=== PATIENT | female | born 1960 | race Caucasian/White ===

== ENCOUNTER 2020-04-23 14:26 | Outpatient (CLI) | payer OTHER, SELFPAY ==
--- NOTE | ~2020-04-23 | CT_ITS ---
EXAMINATION: CT chest wo con DATE: 04/23/2020 15:55 INDICATION: Lung abscess TECHNIQUE: Computed tomography (CT) of the chest was performed without intravenous contrast. The dose -length product (DLP) was 131.75 mGy-cm. Automated exposure control and iterative reconstruction tech [employer] were employed. COMPARISON: 06/28/2019 FINDINGS: There is mild emphysema. The previously described cavitary mass of the right lower lobe is no longer evident. There is a 7 mm persistent nodular area of scarring at the former abscess site. Th e lungs are free of acute opacities. No pathologically enlarged thoracic lymph nodes are identified. The heart size is normal. There is moderate thoracic spondylosis. Healed left-sided rib fractures are noted. IMPRESSION: 1. Persistent area of scarring in the right lower lobe at the site of the prior cavitary mass. Reviewed, dictated and finalized at location A.
--- NOTE | ~2020-04-23 | DEXA_ITS ---
Bone Density Report Name: Margaret Hamilton Age: 59 Sex: Female Ethnicity: White Date of : 1960 Indication: postmenopausal; parental hip fracture; height loss; asthma or emphysema; Referring Provider: LESLEY MARTIN Study: Bone densitometry was performed. Exam Date: April 23, 2020 Accession number: [id number] Bone Density: Region BMD T-score Z-score Classification AP Spine (L1-L4) 1.483 4.0 5.3 Normal Femoral Neck (Left) 0.659 -1.7 -0.5 Osteopenia Total Hip (Left) 0.774 -1.4 -0.5 Osteopenia Total Hip Bilateral Avg 0.789 -1.3 -0.4 Osteopenia Femoral Neck (Right) 0.659 -1.7 -0.5 Osteopenia Total Hip (Right) 0.803 -1.1 -0.3 Osteopenia World Health Organization criteria for BMD impression classify patients as: Normal (T-score at or above -1.0), Osteopenia (T-score between -1.0 and -2.5), or Osteoporosis (T-score at or below -2.5). 10-year Fracture Risk(1): Major Osteoporotic Fracture 13% Hip Fracture 1.3% Reported Risk Factors: [place] (), Neck BMD=0.659, BMI=17.4, parental fracture, smoking (1) FRAX(R) Version 3.08. Fracture probability calculated for an untreated patient. Fracture probability may be lower if the patient has received treatment. Clinical Information Provided by Patient: Parent has had a hip fracture Smokes Has the following medical conditions: Asthma or Emphysema Patient maximum height was 61.5 Menopause Age: 51 No regular weight bearing exercise Drinks caffeinated beverages Onset of menses at age 13 Number of children 0 Impression: The patient has low bone mass, based on the Left Femoral Neck T-score. The patient has an estimated ten-year risk of hip fracture of 1.3% and an estimated ten-year risk of major fracture of 13%, based on the WHO FRAX algorithm. The patient has risk factors, including: parental hip fracture, smoking. Discussion: BONE DENSITY IS LOW AT ONE OR MORE SKELETAL SITES. This patient's lowest T-score is low at one or more skeletal sites. It meets the World Health Organization's (WHO) criteria for ?low bone mass? (T-score between -1.0 and -2.5). The patient's 10-year risk of fracture as calculated by FRAX is less than the threshold where pharmacological therapy is recommended by the National Osteoporosis Foundation (NOF). However, all treatment decisions require clinical judgment and consideration of individual patient factors, including patient preferences, comorbidities, previous drug use, risk factors not captured in the FRAX model (e.g., frailty, falls, vitamin D deficiency, increased bone turnover, interval significant decline in bone density) and possible under or overestimation of fracture risk by FRAX. The patient should follow a healthful lifestyle (good nutrition with adequate calcium and vitamin D, and appropriate weight-bearing exercise).
--- NOTE | ~2020-04-23 | XR_ITS ---
EXAMINATION: XR shoulder RT min 2V DATE: 04/23/2020 15:50 INDICATION: Soft tissue mass at the right shoulder TECHNIQUE: AP internally and externally rotated, AP oblique externally rotated and axillary views of the right shoulder were obtained. COMPARISON: None FINDINGS: Normal alignment. No fracture. Glenohumeral joint space is normal. Mild to moderate acromioclavicula r osteoarthritis with small inferiorly directed osteophytes. Small amount of heterotopic ossification along the right coracoclavicular segment. There is a 9.7 x 4.1 cm lenticular low density mass within the right deltoid muscle with thin peripheral soft tissue density rim most likely representing an in tramuscular lipoma. Visualized portion of the lungs are clear. Severe lower cervical facet osteoarthr itis. 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 Could consider CT or MRI for more definitive determination. Reviewed, dictated and finalized at location B. 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 Could consider CT or MRI for more definitive det ermination.
== END 2020-04-23 14:27 | disposition home or self-care (01) ==
PROVIDERS: Visit Provider Emergency Medicine
DX: J85.2 Abscess of lung without pneumonia (principal); M25.511 Pain in right shoulder; R22.31 Localized swelling, mass and lump, right upper limb
CPT/HCPCS: 71250; 73030; 77080

== ENCOUNTER 2020-05-05 15:42 | Outpatient (CLI) | payer OTHER, SELFPAY ==
--- NOTE | ~2020-05-05 | MR_ITS ---
EXAMINATION: MR shoulder RT wo con DATE: 05/05/2020 16:42 INDICATION: Abnormal soft tissue mass at the right shoulder. TECHNIQUE: Magnetic resonance imaging (MRI) of the right shoulder was performed without intravenous c ontrast. Sequences included axial PD-weighted FS FSE, coronal oblique PD-weighted FS FSE, coronal obl ique T2-weighted FS FSE, sagittal PD-weighted FS FSE, and sagittal T1-weighted SE. COMPARISON: None. FINDINGS: Coracoacromial arch: The acromion undersurface is minimally curved in morphology (type I-II). The coracoacromial ligament is normal. Moderate to severe acromioclavicular osteoarthritis. Low signal intensity region of likely vacuum phenomena within a subarticular cyst at the acromion. Rotator cuff: Moderate supraspinatus and mild infraspinatus tendinopathy without discrete tear. The teres minor ten don is normal. Mild subscapularis tendinopathy without discrete tear. Small enthesopathic ossicle at the lesser tuberosity insertion of the caudal aspect of the subscapularis tendon. Normal rotator cuff muscle bulk and signal. Biceps tendon, glenoid labrum and glenohumeral cartilage: Long head of the biceps tendon is normal. Small tear at the 12:00 position of the glenoid labrum. Par tial-thickness chondral fissuring along the adjacent cephalad rim of the glenoid. Glenohumeral cartil age is otherwise normal. Fluid: Physiologic amount of fluid in the glenohumeral joint and biceps tendon sheath. No loose osteochondra l bodies. Small amount of fluid in the subacromial/subdeltoid bursa consistent with mild bursitis. Bones: Normal marrow signal with no fracture or pathologic marrow replacing process. Homogeneous T1 hyperint ense 7.5 x 3.2 x 3.3 cm lenticular intramuscular mass within the central head of the deltoid. There i s a 5 x 3 x 5 mm T2 hyperintense region centrally within the mass. IMPRESSION: 1. 7.5 x 3.2 x 3.3 cm intramuscular fatty tumor with homogeneous T1 fat signal aside from a 5 x 5 x 3 mm T2 hyperintense region centrally within the mass. Differential would include lipoma variant most likely lipoma small region of central necrosis although differential would include less likely well-d ifferentiated liposarcoma. 2. Mild to moderate rotator cuff tendinopathy without discrete tear. 3. Small tear at the superior glenoid labrum and small region of adjacent partial thickness chondral fissuring along the cephalad rim of the glenoid. 4. Moderate to severe acromioclavicular osteoarthritis with mild underlying subacromial/subdeltoid bu rsitis. Reviewed, dictated and finalized at location B. IMPRESSION: 1. 7.5 x 3.2 x 3.3 cm intramuscular fatty tumor with homogeneous T1 fat signal aside from a 5 x 5 x 3 mm T2 hyperintense region centrally within the mass. Dif ferential would include lipoma variant most likely lipoma small region of centr al necrosis although differential would include less likely well-differentiated liposarcoma. 2. Mild to moderate rotator cuff tendinopathy without discrete tear. 3. Small tear at the superior glenoid labrum and small region of adjacent parti al thickness chondral fissuring along the cephalad rim of the glenoid. 4. Moderate to severe acromioclavicular osteoarthritis with mild underlying sub acromial/subdeltoid bursitis.
== END 2020-05-05 15:43 | disposition home or self-care (01) ==
PROVIDERS: Visit Provider Internal Medicine Pulmonary Disease
DX: R93.6 Abnormal findings on diagnostic imaging of limbs (principal); M79.89 Other specified soft tissue disorders; M19.011 Primary osteoarthritis, right shoulder
CPT/HCPCS: 73221

== ENCOUNTER 2020-12-30 14:49 | Emergency (ER) | payer OTHER, SELFPAY ==
[2020-12-30 14:57] VITALS: BP 139/73; PULSE 101; RESP 16; TEMP 37.3; O2SAT 95
--- NOTE | 2020-12-30 15:02 | ED.SKABFB ---
HPI - Skin/Abscess/Foreign Bdy General Chief complaint: Extremity Injury, Upper Stated complaint: SWOLLEN FINGER Source: patient and RN notes reviewed Limitations: no limitations History of Present Illness HPI narrative: The patient, who is a regular smoker/occasional drinker, presents with finger discomfort. Patient states she has a new onset, half week history of left index finger pad pain, redness and swelling. No fever, streaking, discharge, localization to the nail, injury. Symptoms are mild, worse with palpation, better with elevation. She would like a refill of her inhalers while here so mentions that she has stable , mild intermittent COPD/breathing troubles Related Data Home Medications Medication Instructions Recorded Confirmed alendronate mg PO 12/30/20 alprazolam 12/30/20 budesonide-formoterol [Symbicort] INHALATION 12/30/20 gabapentin 12/30/20 hydrochlorothiazide 12/30/20 sertraline mg 12/30/20 Allergies Allergy/AdvReac Type Severity Reaction Status Date / Time Penicillins Allergy Intermediate HIVES Verified 09/01/18 15:26 Review of Systems Review of Systems: Narrative: General/Constitutional: No weight loss,fever Eyes: N0: Redness,discharge Ears/Nose/Throat: No: Epistaxis,ear discharge Respiratory: Denies: Hemoptysis Gastrointestinal: No Vomiting, Bleeding-rectal Skin: REPORTS possible umps, eruption Neurologic: No Focal Weakness,Sz Hematologic: Denies: Petechiae/Purpura Psychiatric: No: Suicida ideationl All Other Systems: Reviewed and Negative PMFSH Comments At time of signature, agree with nursing past medical, surgical, social and family history. There is no relevant family history pertinent to the presenting complaint Exam Narrative: Exam Narrative: General Appearance: Well appearing, , Conjunctiva clear Ears: External ear normal, Auditory canal normal Nose: Normal nose, Nares clear Mouth/Throat: Normal appearing, Normal lips Neck: Supple Respiratory: Airway patent, No respiratory distress MS-finger: Normal strength (mostly intact, limited flexion/extension by pain), Tenderness (pad, with mild decreased ROM), Swelling (pad), Other (no anterior drawer, no collateral laxity,) Skin: Warm, Dry, Normal color Neurological: A&O x3, Speech clear, CN II-XII intact Psychiatric: Normal mood, Normal affect Course Vital Signs Vital signs: Vital Signs Temperature 99.1 F 12/30/20 14:57 Pulse Rate 101 H 12/30/20 14:57 Respiratory Rate 16 12/30/20 14:57 Blood Pressure 139/73 12/30/20 14:57 Pulse Oximetry 95 12/30/20 14:57 Temperature 99.1 F 12/30/20 14:57 Pulse Rate 101 H 12/30/20 14:57 Respiratory Rate 16 12/30/20 14:57 Blood Pressure 139/73 12/30/20 14:57 Pulse Oximetry 95 12/30/20 14:57 Procedures Abscess I/D hand: Date of Incision: 12/30/20 Side (if applicable): left Local Anesthetic: other anesthetic (EMLA) Technique: needle aspiration Irrigation: No Packing used?: none I&D Results: Blood and Nothing Discharge Plan Discharge Clinical Impression: Wil Patient Disposition: Home, Self-Care Condition: Stable Instructions: Paronychia (ED) Additional Instructions: Take clindamycin with food, pro biotic; stop if diarrhea occurs Return to hospital if worsens Do not take pain medicines with your other controlled drugs [alprazolam, sertraline] Prescriptions: New clindamycin HCl 300 mg capsule 300 mg PO TID Qty: 15 RF: 0 albuterol sulfate [Ventolin HFA] 90 mcg/actuation HFA aerosol inhaler 2 puff INHALATION QID PRN (Reason: shortness of breath or wheezing) Qty: 1 RF: 1 albuterol sulfate 2.5 mg /3 mL (0.083 %) solution for nebulization 2.5 mg inhalation Q6H Qty: 15 RF: 0 tramadol 50 mg tablet 50 mg PO Q6H PRN (Reason: pain) Qty: 14 RF: 0 No Action alendronate 70 mg tablet PO RF: 0 sertraline 100 mg tablet RF: 0 alpra
[2020-12-30] MEDS: LIDOCAINE/PRILOCAINE CREAM 2.5-2.5% TUBE 1 EACH TOPICAL (15:09)
== END 2020-12-30 15:56 | disposition home or self-care (01) ==
PROVIDERS: Emergency Provider Emergency Medicine; PCP Internal Medicine Pulmonary Disease
DX: M79.89 Other specified soft tissue disorders (principal); L03.012 Cellulitis of left finger; G62.9 Polyneuropathy, unspecified
CPT/HCPCS: 10160; 99213; G0463

== ENCOUNTER 2021-05-14 16:06 | Outpatient (CLI) | payer OTHER, SELFPAY ==
--- NOTE | ~2021-05-14 | CT_ITS ---
EXAMINATION: CT diagnostic chest wo con DATE: 05/14/2021 16:27 INDICATION: Solitary pulmonary nodule TECHNIQUE: Computed tomography (CT) of the chest was performed without intravenous contrast. The dose -length product (DLP) was 59.29 mGy-cm. Automated exposure control and iterative reconstruction techn ique were employed. COMPARISON: 04/23/2020 FINDINGS: There is mild emphysema. A persistent 7 mm area of nodular scarring is present in the right lower lobe at the site of prior abscess. There are patchy nodular opacities of the right lower lobe measuring up to 1.5 x 1.4 cm. Nodular airspace opacity is also present in the right middle lobe. Subt le groundglass opacity is noted in the right upper lobe. There is no pleural effusion or pneumothorax . There is mild mediastinal lymphadenopathy. The heart size is normal. There is moderate thoracic spo ndylosis. Severe lower cervical spondylosis is noted. IMPRESSION: 1. Nodular and airspace opacities of the right lung, likely infectious/inflammatory. Follow-up CT in three months is recommended. Reviewed, dictated and finalized at location B. RO SERVER IMPRESSION: 1. Nodular and airspace opacities of the right lung, likely infectious/inflamma tory. Follow-up CT in three months is recommended.
== END 2021-05-14 16:07 | disposition home or self-care (01) ==
LOC: ANHIMG 16:09
PROVIDERS: PCP Internal Medicine Pulmonary Disease; Visit Provider Internal Medicine Pulmonary Disease
DX: R91.1 Solitary pulmonary nodule (principal); M47.813 Spondylosis without myelopathy or radiculopathy, cervicothoracic region
CPT/HCPCS: 71250

== ENCOUNTER 2022-04-12 14:54 | Inpatient (IN) | payer OTHER, SELFPAY ==
[2022-04-12] VITALS (19 sets, daily range): BP systolic 103–166; BP diastolic 65–125; PULSE 95–120; RESP 18–33; TEMP 36.2–37.8; O2SAT 93–100; BMI 17.8
--- NOTE | ~2022-04-12 | XR_ITS ---
EXAMINATION: XR chest 1V portable DATE: 04/15/2022 08:07 INDICATION: Pneumonia. TECHNIQUE: A single frontal view of the chest was obtained. COMPARISON: Chest single view 04/12/2022, chest CT 05/14/2021 FINDINGS: The lungs are hyperexpanded. There are mild airspace opacities in right lower lung zone and left midlung zone. No pleural effusion or pneumothorax. The heart size is normal. There are old heal ed left rib fractures. IMPRESSION: 1. Mild airspace opacities in right lower lung zone and left midlung zone with worsening on the left, consistent with pneumonia. Reviewed, dictated and finalized at location D.
--- NOTE | ~2022-04-12 | XR_ITS ---
XR chest 1V portable 04/12/2022 16:12 Indication: Shortness of breath with fevers. History of COPD. Low oxygen saturation. Procedure: AP portable chest Comparison: 05/13/2019 Findings: Heart size is normal. The lungs are hyperinflated which is consistent with, but not diagnos tic of chronic obstructive pulmonary disease. Bibasilar airspace disease. No significant effusion or pneumothorax. No acute osseous abnormality. Impression: 1: Bibasilar airspace disease may represent pneumonia or edema. Reviewed, dictated and finalized at location A. Impression: 1: Bibasilar airspace disease may represent pneumonia or edema.
--- NOTE | 2022-04-12 14:58 | ECG_ITS ---
Measurements Intervals [place] Rate: 115 P: 88 WY: 185 QRS: 73 QRSD: 77 T: 77 QT: 312 QTc: 432 Interpretive Statements SINUS TACHYCARDIA POSSIBLE RIGHT ATRIAL ENLARGEMENT [0.25mV P WAVE] POSSIBLE LEFT ATRIAL ENLARGEMENT [-0.1mV P WAVE IN V1/V2] BORDERLINE ECG NO PREVIOUS ECG AVAILABLE FOR COMPARISON Electronically Signed On 04-12-2022 17:12:43 CDT by Dao Carr M.D.
[2022-04-12] MEDS: MAGNESIUM SULF 2 GM/WATER 50ML 2 GM/50 ML BAG IVPB (15:12)
--- NOTE | 2022-04-12 15:14 | PC.NURSE ---
Per verbal order of Dr. Delaney, Mag infusing over 15 minutes.
[2022-04-12] MEDS: IPRATROPIUM BR 0.02% INH SOLN 0.5 MG/2.5 ML VIAL INHALATION (15:23)
[2022-04-12] MEDS: ALBUTEROL SULFATE NEB 2.5 MG/3 ML INH 5 MG INHALATION ×4 (15:23→20:32)
[2022-04-12 15:24] LABS: Basophils Absolute Auto 0.1 K/mm3 (0.0-0.1); Basophils Percent Auto 0.3 % (0.2-1.2); Eosinophils Percent Auto 0.2 % (0-4.4); Hematocrit 38.2 % (37.0-47.0); Hemoglobin 12.2 g/dL (12.0-15.0); Immature Granulocyte Absolute 0.25 K/mm3 (0.00-0.031); Lymphocytes Percent Auto 5.6 % (18.3-44.2); Mean Corpuscular HGB Conc 31.9 g/dl (32-36); Mean Corpuscular Hemoglobin 32.6 pg (26-34); Mean Corpuscular Volume 102.1 fl (80-100); Mean Platelet Volume 8.7 fl (7.4-10.4); Monocytes Absolute Auto 1.8 K/mm3 (0.1-0.6); Monocytes Percent Auto 7.2 % (2.6-8.5); Neutrophils Absolute Auto 21.3 K/mm3 (1.3-6.7); Neutrophils Percent Auto 85.7 % (45.5-73.1); Platelet Count Result 504 k/mm3 (150-375); Red Blood Count 3.74 M/mm3 (4.2-5.4); Red Cell Distribution Width 13.1 % (11.5-14.5); White Blood Count 24.9 K/mm3 (4.5-10.0)
--- NOTE | 2022-04-12 15:34 | ED.SOB ---
HPI - SOB/Dyspnea General Chief Complaint: Shortness of Breath/Dyspnea Stated Complaint: RESP DISTRESS History of Present Illness HPI Narrative: This is a 61-year-old female with past medical history of COPD, with cough over the past week, brought in by EMS for shortness of breath. The patient reports she was seen by her primary care doctor for pneumonia and started on doxycycline but continued to have shortness of breath. Today her breathing significantly worsened and did not improve despite use of home nebulizers. She complains of chest tightness but denies pain, loss of consciousness, weakness or numbness. Related Data Home Medications Medication Instructions Recorded Confirmed alprazolam 0.25 mg tablet 0.25 mg PO BID 12/30/20 04/12/22 gabapentin 300 mg capsule 300 mg PO DAILY 12/30/20 04/12/22 hydrochlorothiazide 12.5 mg tablet 12.5 mg PO DAILY 12/30/20 04/12/22 sertraline 100 mg tablet 100 mg PO DAILY 12/30/20 04/12/22 Allergies Allergy/AdvReac Type Severity Reaction Status Date / Time Penicillins Allergy Intermediate HIVES Verified 09/01/18 15:26 Review of Systems Review of Systems: Review of systems limited due to patient acuity CONSTITUTIONAL: Subjective fevers and chills denies sweats. ENT: Denies rhinorrhea, congestion, sore throat, or otalgia. CARDIOVASCULAR: Denies chest pain, palpitations, or edema. RESPIRATORY: cough and dyspnea. GASTROINTESTINAL: Denies abdominal pain, nausea, vomiting, or diarrhea. GENITOURINARY: Denies dysuria or hematuria. SKIN: Denies rash or itching. MUSCULOSKELETAL: Denies back pain, joint pain, or myalgia. NEUROLOGIC: Denies headache, numbness, dizziness, or weakness. PSYCHIATRIC: Denies anxiety or depression. PMFSH Social History Social History Years smoked: 45 Smoking status: Light tobacco smoker Tobacco type: cigarettes Second hand tobacco smoke exposure: No Alcohol intake: current Drinks per week: 14 Substance use: never Spiritual care concerns: No Exam Narrative: GENERAL: Well-developed, well-nourished, thin, in moderate distress due to dyspnea HEAD: Normocephalic, atraumatic. EYES: PERRLA and EOMI. ENT: Nares clear, no rhinorrhea or epistaxis. Mucous membranes moist. Oropharynx without tonsillar hypertrophy exudate or other lesions. NECK: Supple. No adenopathy or masses. No carotid bruits or JVD CHEST: Tachypneic, decreased aeration on auscultation, full cycle wheeze, greatest in the expiratory phase. Supraclavicular retractions noted HEART: Tachycardic with regular rhythm. No murmur heard. Normal peripheral pulses. ABDOMEN: Soft, nontender, nondistended, normal active bowel sounds. EXTREMITIES: Normal range of motion. No edema. SKIN: Warm, dry, no rash. NEURO: No focal deficits. Alert and oriented x3. PSYCH: Normal mood and affect. Course Course Emergency Course: 16:09 - Chest x-ray concerning for pneumonia we will treat with Rocephin and azithromycin. 16:14 - Reassessed patient, she states her breathing has improved. Heart rate improved to 100s with nebulizing treatments ongoing. Lung sounds now demonstrate mild expiratory wheeze with improved aeration. 17:02 - Discussed patient with hospitalist, NITA Tyson who accepts admission. Review of documentation shows the patient has been recently prescribed steroids. I suspect this is contributing to the patient's elevated WBC. Vital Signs Vital signs: Vital Signs Pulse Rate 119 H 04/12/22 15:00 Pulse Oximetry 96 04/12/22 15:00 Oxygen Delivery Nasal Cannula 04/12/22 15:00 Oxygen Flow Rate 5 04/12/22 15:00 Temperature 97.2 F L 04/12/22 20:25 Pulse Rate 102 H 04/12/22 20:45 Respiratory Rate 22 H 04/12/22 20:45 Blood Pressure 121/74 04/12/22 20:25 Pulse Oximetry 95 04/12/22 20:33 Oxygen Delivery Nasal Cannula 04/12/22 20:33 Oxygen Flow Rate 2 04/12/22 20:33 MDM - SOB/Dyspnea MDM Narrative Medical decision making narrative: Plan: Labs, imaging, nebs, antib
[2022-04-12 15:35] LABS: Alanine Aminotransferase 28 U/L (6-35); Albumin Level 3.7 g/dL (3.5-5.1); Alkaline Phosphatase 150 U/L (38-126); Anion Gap 10 mmol/L (8-16); Aspartate Amino Transferase 42 U/L (14-36); Bilirubin,Total 0.4 mg/dL (0.2-1.3); Blood Urea Nitrogen 15 mg/dL (7-17); Calcium 9.1 mg/dL (8.4-10.2); Carbon Dioxide 30 mmol/L (22-30); Chloride 97 mmol/L (98-107); Estimated CRCL calculation 67 ml/min; Estimated Glomerular Filt Rate > 60; Glucose 167 mg/dL (65-110); Potassium 3.3 mmol/L (3.4-5.0); Sodium 137 mmol/L (137-145)
[2022-04-12 15:37] LABS: Lactic Acid Reflex 0.9 mmol/L (0.7-2.0)
[2022-04-12 16:01] LABS: Influenza A QL RT-PCR Negative (Negative); Influenza B QL RT-PCR Negative (Negative); SARS-CoV-2 RNA PCR Negative; Troponin I < 0.012 ng/mL (0.000-0.034)
[2022-04-12] MEDS: DOXYCYCLINE HYCLATE 100 MG TABLET PO (16:39)
--- NOTE | 2022-04-12 17:15 | PM.IMHP ---
H&P: HPI History of Present Illness Date/Time: 04/12/22 17:15 Chief Complaint: Shortness of breath. Narrative: This is a pleasant 61-year-old female smoker with COPD who presented to the emergency department via EMS from home for evaluation of shortness of breath. She has not felt well for over a week with headache, low-grade fevers, sinus congestion, and cough productive of greenish-yellow sputum. Her quality intern prescribed doxycycline on 04/04/2022however she has taken this for several days without any meaningful benefit. Her breathing was much worse over the last 24 hours and this morning she could barely even catch her breath and was wheezing so much that she called emergency services. On EMS arrival her SpO2 was 82% on room air and she received a nebulizer and Solu-Medrol 125 milligrams in route to the hospital. Since arrival to the ER she has had a continuous nebulizer and she is feeling somewhat better. Workup in the ER was significant for a WBC of 24.9, potassium 3.3, troponin less than 0.012, and findings of pneumonia on chest x-ray. She was negative for influenza A and B and SARs CoV 2 by PCR. she denies sore throat, headache, chest pain, pleuritic pain, nausea, vomiting, and diarrhea. She also denies dysphagia and concerns for aspiration. No recent travel or known sick contacts. Review of Systems Review of Systems: Twelve systems were reviewed and are negative except for as per HPI. [facility] Past Medical History Medical History (Updated 04/12/22 @ 23:07 by Marbella Khan PA-C) Anxiety Chronic obstructive pulmonary disease Daily consumption of alcohol Hypertension Neuropathy Tobacco abuse Surgical History Surgical History (Updated 04/12/22 @ 23:05 by Marbella Khan PA-C) History of surgery on right wrist Family History Family History (Updated 04/12/22 @ 23:05 by Marbella Khan PA-C) Other Hypertension Social History Social History (Updated 04/12/22 @ 23:06 by Marbella Khan PA-C) Social History: Surrogate medical decision maker: Dorian (father) or Kerwin (brother) Alfonso. Code status: Full code. Smoking packs per day: 1 Smoking cigarettes per day: 20.0 Years smoked: 45 Smoking pack-years: 45.00 Smoking status: Current every day smoker Tobacco type: cigarettes Second hand tobacco smoke exposure: No Alcohol intake: current Drinks per week: 14 Substance use: never Additional living arrangements comments: The patient lives in [place]. 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 Spiritual care concerns: No Meds Home Medications and Allergies Home Medications Medication Instructions Recorded Confirmed Type albuterol sulfate 2.5 mg/3 mL 2.5 mg (3 mL) inhalation Q6H #15 mL 12/30/20 04/12/22 Rx (0.083 %) solution for nebulization albuterol sulfate 90 mcg/actuation 2 puff inhalation QID PRN 12/30/20 04/12/22 Rx aerosol inhaler (Ventolin HFA) shortness of breath or wheezing #1 g alprazolam 0.25 mg tablet 0.25 mg PO BID 12/30/20 04/12/22 History gabapentin 300 mg capsule 300 mg PO DAILY 12/30/20 04/12/22 History hydrochlorothiazide 12.5 mg tablet 12.5 mg PO DAILY 12/30/20 04/12/22 History sertraline 100 mg tablet 100 mg PO DAILY 12/30/20 04/12/22 History Allergies Allergy/AdvReac Type Severity Reaction Status Date / Time Penicillins Allergy Intermediate HIVES Verified 09/01/18 15:26 Vital Signs Vital Signs - 24 hr 04/12/22 15:00 04/12/22 15:00 04/12/22 15:22 Temperature Pulse Rate 119 H 108 H Respiratory Rate 27 H Blood Pressure Pulse Oximetry 96 Oxygen Delivery Nasal Cannula Oxygen Flow Rate 5 04/12/22 15:22 04/12/22 15:01 04/12/22 15:16 Temperature 100.1 F H Pulse Rate 114 H 120 H Respiratory Rate 23 H 23 H Blood Pressure 128/79 139/76 Pulse Oximetry 96 95 Oxygen Delivery Oxygen Flow Rate 04/12/22 16:20 Temperature Pulse Rate 111 H Respiratory Rate 25 H Blood
--- NOTE | 2022-04-12 18:08 | PC.NURSE ---
Patient care report called to RUPERTO Sam. All questions answered at this time.
--- NOTE | 2022-04-12 18:36 | PC.NURSE ---
This patient, Margaret Hamilton, was admitted to [facility] Surg Room 311-01. Patient/family oriented to hospital policies and general routines including ID bracelet, bed and alarms, visiting hours, pain management, procedures, bathroom and other care routines, personal items, smoking policy, room service/diet, and visiting hours. Information on how to activate the Rapid Response Team has been discussed. Patient/Family are encouraged to report perceived risks to care and to ask questions if they do not understand what they are told or what they should do.
[2022-04-13] VITALS (14 sets, daily range): BP systolic 100–125; BP diastolic 58–76; PULSE 87–108; RESP 17–25; TEMP 36.1–37; O2SAT 95–100; BMI 21.0
[2022-04-13] MEDS: POTASSIUM CHLORIDE 20 MEQ TABLET PO (00:55)
[2022-04-13] MEDS: LORazepam INJ (*CRX) 2 MG/ML VIAL 1 MG IV PUSH (01:32)
--- NOTE | 2022-04-13 02:55 | PCRCNOTE ---
Patient does not want to be woke up for breathing treatments over night. Told patient that if they decide they want a treatment to let RN know.
[2022-04-13 06:02] LABS: Hematocrit 34.7 % (37.0-47.0); Hemoglobin 11.1 g/dL (12.0-15.0); Mean Corpuscular Hemoglobin 32.7 pg (26-34); Mean Corpuscular Volume 102.4 fl (80-100); Mean Platelet Volume 8.9 fl (7.4-10.4); Platelet Count Result 515 k/mm3 (150-375); Red Blood Count 3.39 M/mm3 (4.2-5.4); White Blood Count 24.2 K/mm3 (4.5-10.0)
[2022-04-13 06:16] LABS: Alanine Aminotransferase 26 U/L (6-35); Albumin Level 3.4 g/dL (3.5-5.1); Alkaline Phosphatase 128 U/L (38-126); Anion Gap 10 mmol/L (8-16); Aspartate Amino Transferase 25 U/L (14-36); Bilirubin,Total 0.1 mg/dL (0.2-1.3); Blood Urea Nitrogen 19 mg/dL (7-17); Calcium 8.7 mg/dL (8.4-10.2); Carbon Dioxide 32 mmol/L (22-30); Chloride 97 mmol/L (98-107); Estimated CRCL calculation 56 ml/min; Estimated Glomerular Filt Rate > 60; Glucose 347 mg/dL (65-110); Magnesium 2.2 mg/dL (1.6-2.3); Potassium 3.9 mmol/L (3.4-5.0); Sodium 139 mmol/L (137-145)
[2022-04-13] MEDS: IPRATROPIUM BR 0.02% INH SOLN 0.5 MG/2.5 ML VIAL INHALATION ×2 (08:07→20:25)
[2022-04-13] MEDS: ALBUTEROL SULFATE NEB 2.5 MG/3 ML INH INHALATION ×3 (08:07→20:25)
[2022-04-13] MEDS: predniSONE 20 MG TABLET 40 MG PO (08:30)
[2022-04-13] MEDS: ALPRAZolam (*CRX) 0.25 MG TABLET PO ×2 (08:30→16:46)
[2022-04-13] MEDS: hydroCHLOROthiazide 12.5 MG CAPSULE PO (08:30)
[2022-04-13] MEDS: GABAPENTIN 300 MG CAPSULE PO (08:30)
[2022-04-13] MEDS: ENOXAPARIN 40 MG/0.4 ML SYRINGE SUB-Q (08:30)
[2022-04-13] MEDS: SERTRALINE HCL 50 MG TABLET 100 MG PO (08:30)
--- NOTE | 2022-04-13 11:00 | PM.IMPN ---
Progress Note: A&P Assessment and Plan (1) Community acquired pneumonia: Code(s): J18.9 - Pneumonia, unspecified organism Status: Acute Assessment and Plan: WBC is 24.2 Chest xray shows bibasilar disease representing pneumonia or edema Continue azithromycin and ceftriaxone. Sputum to be attempted for culture. Urinary antigens pneumococcal and legionella Get a BNP in the am to rule out fluid imbalance (2) COPD exacerbation: Code(s): J44.1 - Chronic obstructive pulmonary disease with (acute) exacerbation Status: Acute Assessment and Plan: Neb treatments Prednisone 40mg PO x 5 days Could be an acute exacerbation mixed with pneumonia Sputum culture ordered Chest xray as above Continue antibiotics (3) Tobacco abuse: Code(s): Z72.0 - Tobacco use Status: Acute Assessment and Plan: Smoking cessation is imperative and was discussed. She has cut back heavily over the last several weeks. Patch and gum PRN Education give x 8 minutes (4) Hypertension: Code(s): I10 - Essential (primary) hypertension Status: Acute Assessment and Plan: BP 106/69 Blood pressures were reviewed and they are reasonable. Continue antihypertensives Trend BP Adjust therapy as indicated (5) Daily consumption of alcohol: Code(s): Z78.9 - Other specified health status Status: Acute Assessment and Plan: She denies ever having signs or symptoms of alcohol withdrawal. Will initiate CIWA protocol, however. (6) Hypokalemia: Code(s): E87.6 - Hypokalemia Status: Acute Assessment and Plan: K 3.9 Potassium will be replaced Trend potassium Time Spent With Patient Time with patient: Greater than 35 minutes Subjective Date/time seen: 04/13/22 11:00 Interval history: 04/13/22 1100 Patient was okay. Patient has increased shortness of breath. She denied any coughing. She also denies any swelling and states that she is little short of breath. She denies any chest pain or sputum production. Patient does wear oxygen at home. Upon auscultation of the lungs it was noted the patient is very wheezy on expiration. She currently denies any constipation or diarrhea 04/12/22? 17:15 This is a pleasant 61-year-old female smoker with COPD who presented to the emergency department via EMS from home for evaluation of shortness of breath. She has not felt well for over a week with headache, low-grade fevers, sinus congestion, and cough productive of greenish-yellow sputum. Her emt p prescribed doxycycline on 04/04/2022however she has taken this for several days without any meaningful benefit. Her breathing was much worse over the last 24 hours and this morning she could barely even catch her breath and was wheezing so much that she called emergency services.? On EMS arrival her SpO2 was 82% on room air and she received a nebulizer and Solu-Medrol 125 milligrams in route to the hospital. Since arrival to the ER she has had a continuous nebulizer and she is feeling somewhat better. Workup in the ER was significant for? a WBC of 24.9, potassium 3.3, troponin less than 0.012, and findings of pneumonia on chest x-ray. She was negative for influenza A and B and SARs CoV 2 by PCR. she denies sore throat, headache, chest pain, pleuritic pain, nausea, vomiting, and diarrhea. She also denies dysphagia and concerns for aspiration. No recent travel or known sick contacts. Review of Systems Review of Systems: All systems reviewed & are unremarkable except as noted in HPI and below Exam Const: General: cooperative, no acute distress, well developed, alert, awake and well nourished Nutritional Appearance: well nourished Orientation/consciousness: patient oriented x3 Limitations: no limitations HENMT: Head: normal to inspection Ears: hearing grossly normal bilaterally Face/Nose/Sinus: Normal external nos
--- NOTE | 2022-04-13 20:31 | PCRCNOTE ---
pt is stating that on top of Q4 UPD at home, she would like to have a rescue inhaler to keep with her when she is discharged. pt states she has never been prescribed a rescue inhaler and would feel more secure being out of the home with an albuterol inhaler.
--- NOTE | 2022-04-13 20:34 | PCRCNOTE ---
pt is stating to not wake her up for 0000 or 0400 UPD. pt stated she will call if in need of UPD treatment.
[2022-04-14] VITALS (15 sets, daily range): BP systolic 118–134; BP diastolic 72–84; PULSE 74–105; RESP 16–20; TEMP 36.1–36.7; O2SAT 94–100
[2022-04-14 05:54] LABS: Basophils Percent Auto 0.1 % (0.2-1.2); Eosinophils Percent Auto 0.2 % (0-4.4); Hematocrit 34.1 % (37.0-47.0); Hemoglobin 10.5 g/dL (12.0-15.0); Immature Granulocyte Percent A 1.2 % (0-0.5); Lymphocytes Absolute Auto 1.69 K/mm3 (0.9-3.2); Mean Corpuscular HGB Conc 30.8 g/dl (32-36); Mean Corpuscular Hemoglobin 32.5 pg (26-34); Mean Corpuscular Volume 105.6 fl (80-100); Mean Platelet Volume 8.8 fl (7.4-10.4); Monocytes Absolute Auto 1.1 K/mm3 (0.1-0.6); Monocytes Percent Auto 6.7 % (2.6-8.5); Neutrophils Absolute Auto 13.8 K/mm3 (1.3-6.7); Neutrophils Percent Auto 81.8 % (45.5-73.1); Platelet Count Result 525 k/mm3 (150-375); Red Blood Count 3.23 M/mm3 (4.2-5.4); Red Cell Distribution Width 13.2 % (11.5-14.5); White Blood Count 16.9 K/mm3 (4.5-10.0)
[2022-04-14 06:26] LABS: Alanine Aminotransferase 33 U/L (6-35); Albumin Level 3.1 g/dL (3.5-5.1); Alkaline Phosphatase 121 U/L (38-126); Anion Gap 6 mmol/L (8-16); Aspartate Amino Transferase 45 U/L (14-36); Bilirubin,Total < 0.1 mg/dL (0.2-1.3); Blood Urea Nitrogen 20 mg/dL (7-17); Calcium 8.8 mg/dL (8.4-10.2); Carbon Dioxide 33 mmol/L (22-30); Chloride 97 mmol/L (98-107); Estimated CRCL calculation 64 ml/min; Estimated Glomerular Filt Rate > 60; Glucose 175 mg/dL (65-110); Potassium 3.5 mmol/L (3.4-5.0); Sodium 136 mmol/L (137-145)
[2022-04-14] MEDS: hydroCHLOROthiazide 12.5 MG CAPSULE PO (08:38)
[2022-04-14] MEDS: ENOXAPARIN 40 MG/0.4 ML SYRINGE SUB-Q (08:38)
[2022-04-14] MEDS: predniSONE 20 MG TABLET 40 MG PO (08:38)
[2022-04-14] MEDS: SERTRALINE HCL 50 MG TABLET 100 MG PO (08:38)
[2022-04-14] MEDS: GABAPENTIN 300 MG CAPSULE PO ×2 (08:38→22:15)
[2022-04-14] MEDS: NICOTINE (*PBKC) 21 MG PATCH 1 PATCH TRANSDERM (08:39)
[2022-04-14] MEDS: ALPRAZolam (*CRX) 0.25 MG TABLET PO ×2 (08:39→16:15)
[2022-04-14] MEDS: ALBUTEROL SULFATE NEB 2.5 MG/3 ML INH INHALATION ×3 (09:20→20:56)
[2022-04-14] MEDS: IPRATROPIUM BR 0.02% INH SOLN 0.5 MG/2.5 ML VIAL INHALATION ×3 (09:20→20:56)
--- NOTE | 2022-04-14 11:15 | PM.IMPN ---
Progress Note: A&P Assessment and Plan (1) Community acquired pneumonia: Code(s): J18.9 - Pneumonia, unspecified organism Status: Acute Assessment and Plan: WBC is 24.2, trending down currently 16.9 Chest xray shows bibasilar disease representing pneumonia or edema 04/13/22 Continue azithromycin and ceftriaxone. day 2 Sputum collected and pending Urinary antigens pneumococcal and legionella (2) COPD exacerbation: Code(s): J44.1 - Chronic obstructive pulmonary disease with (acute) exacerbation Status: Acute Assessment and Plan: Neb treatments Prednisone 40mg PO x 5 days Could be an acute exacerbation mixed with pneumonia Sputum culture pending Wheezing better today remains on supplemental oxygen Chest xray as above Continue antibiotics (3) Tobacco abuse: Code(s): Z72.0 - Tobacco use Status: Acute Assessment and Plan: Smoking cessation is imperative and was discussed. She has cut back heavily over the last several weeks. Patch and gum PRN (4) Hypertension: Code(s): I10 - Essential (primary) hypertension Status: Acute Assessment and Plan: BP 124/84 Blood pressures were reviewed and they are reasonable. Continue antihypertensives Trend BP Adjust therapy as indicated (5) Daily consumption of alcohol: Code(s): Z78.9 - Other specified health status Status: Acute Assessment and Plan: She denies ever having signs or symptoms of alcohol withdrawal. Will initiate CIWA protocol, however. (6) Hypokalemia: Code(s): E87.6 - Hypokalemia Status: Acute Assessment and Plan: K 3.5 Potassium will be replaced Trend potassium Time Spent With Patient Time with patient: Greater than 35 minutes Subjective Date/time seen: 04/14/22 1115 Interval history: 04/14/22 1115 Patient is sitting up in bed. Patient states that she is feeling better today however she still is feeling short of breath and is still on oxygen. She also states that she still weak. She is walking back and forth to the bathroom. She also has more cough today and states that her sputum is more yellow. She also stated that with her cough it is causing her have a little bit of chest discomfort. She denies any palpitations, wheezes, sweats, fevers, chills. 04/13/22 1100 Patient was okay. Patient has increased shortness of breath. She denied any coughing. She also denies any swelling and states that she is little short of breath. She denies any chest pain or sputum production. Patient does wear oxygen at home. Upon auscultation of the lungs it was noted the patient is very wheezy on expiration. She currently denies any constipation or diarrhea 04/12/22? 17:15 This is a pleasant 61-year-old female smoker with COPD who presented to the emergency department via EMS from home for evaluation of shortness of breath. She has not felt well for over a week with headache, low-grade fevers, sinus congestion, and cough productive of greenish-yellow sputum. Her children's court magistrate prescribed doxycycline on 04/04/2022however she has taken this for several days without any meaningful benefit. Her breathing was much worse over the last 24 hours and this morning she could barely even catch her breath and was wheezing so much that she called emergency services.? On EMS arrival her SpO2 was 82% on room air and she received a nebulizer and Solu-Medrol 125 milligrams in route to the hospital. Since arrival to the ER she has had a continuous nebulizer and she is feeling somewhat better. Workup in the ER was significant for? a WBC of 24.9, potassium 3.3, troponin less than 0.012, and findings of pneumonia on chest x-ray. She was negative for influenza A and B and SARs CoV 2 by PCR. she denies sore throat, headache, chest pain, pleuritic pain, nausea, vomiting, and diarrhea. She also denies dysphagia and concerns for aspi
--- NOTE | 2022-04-14 11:15 | P.PNIM_ITS ---
Progress Note: A&P Assessment and Plan (1) Community acquired pneumonia: Code(s): J18.9 - Pneumonia, unspecified organism Status: Acute Assessment and Plan: * WBC is 24.2, trending down currently 16.9 * Chest xray shows bibasilar disease representing pneumonia or edema 04/13/22 * Continue azithromycin and ceftriaxone. day 2 * Sputum collected and pending * Urinary antigens pneumococcal and legionella (2) COPD exacerbation: Code(s): J44.1 - Chronic obstructive pulmonary disease with (acute) exacerbation Status: Acute Assessment and Plan: * Neb treatments * Prednisone 40mg PO x 5 days * Could be an acute exacerbation mixed with pneumonia * Sputum culture pending * Wheezing better today * remains on supplemental oxygen * Chest xray as above * Continue antibiotics (3) Tobacco abuse: Code(s): Z72.0 - Tobacco use Status: Acute Assessment and Plan: * Smoking cessation is imperative and was discussed. * She has cut back heavily over the last several weeks. * Patch and gum PRN (4) Hypertension: Code(s): I10 - Essential (primary) hypertension Status: Acute Assessment and Plan: * BP 124/84 * Blood pressures were reviewed and they are reasonable. * Continue antihypertensives * Trend BP * Adjust therapy as indicated (5) Daily consumption of alcohol: Code(s): Z78.9 - Other specified health status Status: Acute Assessment and Plan: She denies ever having signs or symptoms of alcohol withdrawal. Will initiate CIWA protocol, however. (6) Hypokalemia: Code(s): E87.6 - Hypokalemia Status: Acute Assessment and Plan: * K 3.5 * Potassium will be replaced * Trend potassium Time Spent With Patient Time with patient: Greater than 35 minutes Subjective Date/time seen: 04/14/22 1115 Interval history: 04/14/22 1115 Patient is sitting up in bed. Patient states that she is feeling better today however she still is feeling short of breath and is still on oxygen. She also states that she still weak. She is walking back and forth to the bathroom. She also has more cough today and states that her sputum is more yellow. She also stated that with her cough it is causing her have a little bit of chest discomfort. She denies any palpitations, wheezes, sweats, fevers, chills. 04/13/22 1100 Patient was okay. Patient has increased shortness of breath. She denied any coughing. She also denies any swelling and states that she is little short of breath. She denies any chest pain or sputum production. Patient does wear oxygen at home. Upon auscultation of the lungs it was noted the patient is very wheezy on expiration. She currently denies any constipation or diarrhea 04/12/22? 17:15 This is a pleasant 61-year-old female smoker with COPD who presented to the emergency department via EMS from home for evaluation of shortness of breath. She has not felt well for over a week with headache, low-grade fevers, sinus congestion, and cough productive of greenish-yellow sputum. Her environmental tech prescribed doxycycline on 04/04/2022however she has taken this for several days without any meaningful benefit. Her breathing was much worse over the last 24 hours and this morning she could barely even catch her breath and was wheezing so much that she called emergency services.? On EMS arrival her SpO2 was 82% on room air and she received a nebulizer and Solu-Medrol 125 [place]
[2022-04-14] MEDS: ACETAMINOPHEN 325 MG TABLET 650 MG PO (22:14)
[2022-04-15] VITALS (15 sets, daily range): BP systolic 115–128; BP diastolic 57–66; PULSE 68–100; RESP 16–20; TEMP 36.2–36.5; O2SAT 78–100
--- NOTE | 2022-04-15 05:16 | PCRCNOTE ---
Patient refused her 0000 and 0400 breathing treatments. Patient stated she wanted to sleep.
[2022-04-15 06:04] LABS: Basophils Percent Auto 0.2 % (0.2-1.2); Eosinophils Percent Auto 0.4 % (0-4.4); Hematocrit 32.5 % (37.0-47.0); Hemoglobin 10.3 g/dL (12.0-15.0); Immature Granulocyte Absolute 0.12 K/mm3 (0.00-0.031); Immature Granulocyte Percent A 1.1 % (0-0.5); Lymphocytes Percent Auto 14.7 % (18.3-44.2); Mean Corpuscular HGB Conc 31.7 g/dl (32-36); Mean Corpuscular Hemoglobin 32.5 pg (26-34); Mean Corpuscular Volume 102.5 fl (80-100); Mean Platelet Volume 8.5 fl (7.4-10.4); Monocytes Absolute Auto 0.8 K/mm3 (0.1-0.6); Monocytes Percent Auto 7.6 % (2.6-8.5); Neutrophils Absolute Auto 8.3 K/mm3 (1.3-6.7); Platelet Count Result 547 k/mm3 (150-375); Red Blood Count 3.17 M/mm3 (4.2-5.4); White Blood Count 10.9 K/mm3 (4.5-10.0)
[2022-04-15 06:15] LABS: Alanine Aminotransferase 40 U/L (6-35); Alkaline Phosphatase 112 U/L (38-126); Anion Gap 9 mmol/L (8-16); Aspartate Amino Transferase 39 U/L (14-36); Bilirubin,Total < 0.1 mg/dL (0.2-1.3); Blood Urea Nitrogen 20 mg/dL (7-17); Calcium 8.8 mg/dL (8.4-10.2); Carbon Dioxide 37 mmol/L (22-30); Chloride 95 mmol/L (98-107); Estimated CRCL calculation 64 ml/min; Estimated Glomerular Filt Rate > 60; Glucose 217 mg/dL (65-110); Potassium 3.8 mmol/L (3.4-5.0); Sodium 141 mmol/L (137-145)
[2022-04-15 06:23] LABS: NT Pro B Type Natriuretic Pept 209 pg/mL (5-100)
[2022-04-15] MEDS: IPRATROPIUM BR 0.02% INH SOLN 0.5 MG/2.5 ML VIAL INHALATION ×4 (08:30→20:52)
[2022-04-15] MEDS: ALBUTEROL SULFATE NEB 2.5 MG/3 ML INH INHALATION ×4 (08:30→20:50)
[2022-04-15] MEDS: GABAPENTIN 300 MG CAPSULE PO ×2 (08:34→17:18)
[2022-04-15] MEDS: SERTRALINE HCL 50 MG TABLET 100 MG PO (08:34)
[2022-04-15] MEDS: hydroCHLOROthiazide 12.5 MG CAPSULE PO (08:34)
[2022-04-15] MEDS: ENOXAPARIN 40 MG/0.4 ML SYRINGE SUB-Q (08:35)
[2022-04-15] MEDS: ALPRAZolam (*CRX) 0.25 MG TABLET PO ×2 (08:35→17:21)
[2022-04-15] MEDS: predniSONE 20 MG TABLET 40 MG PO (08:35)
[2022-04-15] MEDS: NICOTINE (*PBKC) 4 MG GUM PO ×3 (08:45→17:18)
--- NOTE | 2022-04-15 10:00 | PM.IMPN ---
Progress Note: A&P Assessment and Plan (1) Community acquired pneumonia: Code(s): J18.9 - Pneumonia, unspecified organism Status: Acute Assessment and Plan: WBC is 24.2, trending down currently 10.9 Chest xray shows bibasilar disease representing pneumonia or edema 04/13/22 Repeat chest xray showed worsening PNA in the left lower lobe Continue azithromycin and ceftriaxone. day 3 Sputum collected and pending Urinary antigens pneumococcal and legionella pending (2) COPD exacerbation: Code(s): J44.1 - Chronic obstructive pulmonary disease with (acute) exacerbation Status: Acute Assessment and Plan: Neb treatments Prednisone 40mg PO x 5 days Could be an acute exacerbation mixed with pneumonia Sputum culture pending Wheezing better today remains on supplemental oxygen Chest xray as above Continue antibiotics (3) Tobacco abuse: Code(s): Z72.0 - Tobacco use Status: Acute Assessment and Plan: Smoking cessation is imperative and was discussed. She has cut back heavily over the last several weeks. Patch and gum PRN (4) Hypertension: Code(s): I10 - Essential (primary) hypertension Status: Acute Assessment and Plan: BP 123/66 Blood pressures were reviewed and they are reasonable. Continue antihypertensives Trend BP Adjust therapy as indicated (5) Daily consumption of alcohol: Code(s): Z78.9 - Other specified health status Status: Acute Assessment and Plan: She denies ever having signs or symptoms of alcohol withdrawal. Will initiate CIWA protocol, however. (6) Hypokalemia: Code(s): E87.6 - Hypokalemia Status: Acute Assessment and Plan: K 3.8 Potassium will be replaced Trend potassium Time Spent With Patient Time with patient: Greater than 35 minutes Subjective Date/time seen: 04/15/22 1000 Interval history: 04/15/22 1000 Patient is still requiring oxygen. She is currently on 3L. She is unable to be weaned at this time. Oxygen was turned off, however, she was not able to maintain her saturations and was noted to be 78% on room air. She denies any chest pain, however she is still short of breath, and she is having some coughing spells. She does not seem to be understanding that she will more than likely will need oxygen. However, would like to know that she is setup for follow up upon discharge. Chest x-ray does show some worsening in the left lower lobe. She follows with Dr. Mcnair in [place] [phone] 04/14/22 1115 Patient is sitting up in bed. Patient states that she is feeling better today however she still is feeling short of breath and is still on oxygen. She also states that she still weak. She is walking back and forth to the bathroom. She also has more cough today and states that her sputum is more yellow. She also stated that with her cough it is causing her have a little bit of chest discomfort. She denies any palpitations, wheezes, sweats, fevers, chills. 04/13/22 1100 Patient was okay. Patient has increased shortness of breath. She denied any coughing. She also denies any swelling and states that she is little short of breath. She denies any chest pain or sputum production. Patient does wear oxygen at home. Upon auscultation of the lungs it was noted the patient is very wheezy on expiration. She currently denies any constipation or diarrhea 04/12/22? 17:15 This is a pleasant 61-year-old female smoker with COPD who presented to the emergency department via EMS from home for evaluation of shortness of breath. She has not felt well for over a week with headache, low-grade fevers, sinus congestion, and cough productive of greenish-yellow sputum. Her chronometer adjuster prescribed doxycycline on 04/04/2022however she has taken this for several days without any meaningful benefit. Her breathing was much w
--- NOTE | 2022-04-15 10:00 | P.PNIM_ITS ---
Progress Note: A&P Assessment and Plan (1) Community acquired pneumonia: Code(s): J18.9 - Pneumonia, unspecified organism Status: Acute Assessment and Plan: * WBC is 24.2, trending down currently 10.9 * Chest xray shows bibasilar disease representing pneumonia or edema 04/13/22 * Repeat chest xray showed worsening PNA in the left lower lobe * Continue azithromycin and ceftriaxone. day 3 * Sputum collected and pending * Urinary antigens pneumococcal and legionella pending (2) COPD exacerbation: Code(s): J44.1 - Chronic obstructive pulmonary disease with (acute) exacerbation Status: Acute Assessment and Plan: * Neb treatments * Prednisone 40mg PO x 5 days * Could be an acute exacerbation mixed with pneumonia * Sputum culture pending * Wheezing better today * remains on supplemental oxygen * Chest xray as above * Continue antibiotics (3) Tobacco abuse: Code(s): Z72.0 - Tobacco use Status: Acute Assessment and Plan: * Smoking cessation is imperative and was discussed. * She has cut back heavily over the last several weeks. * Patch and gum PRN (4) Hypertension: Code(s): I10 - Essential (primary) hypertension Status: Acute Assessment and Plan: * BP 123/66 * Blood pressures were reviewed and they are reasonable. * Continue antihypertensives * Trend BP * Adjust therapy as indicated (5) Daily consumption of alcohol: Code(s): Z78.9 - Other specified health status Status: Acute Assessment and Plan: She denies ever having signs or symptoms of alcohol withdrawal. Will initiate CIWA protocol, however. (6) Hypokalemia: Code(s): E87.6 - Hypokalemia Status: Acute Assessment and Plan: * K 3.8 * Potassium will be replaced * Trend potassium Time Spent With Patient Time with patient: Greater than 35 minutes Subjective Date/time seen: 04/15/22 1000 Interval history: 04/15/22 1000 Patient is still requiring oxygen. She is currently on 3L. She is unable to be weaned at this time. Oxygen was turned off, however, she was not able to maintain her saturations and was noted to be 78% on room air. She denies any chest pain, however she is still short of breath, and she is having some coughing spells. She does not seem to be understanding that she will more than likely will need oxygen. However, would like to know that she is setup for [facility] upon discharge. Chest x-ray does show some worsening in the left lower lobe. She follows with Dr. Mcnair in [place] [phone] 04/14/22 1115 Patient is sitting up in bed. Patient states that she is feeling better today however she still is feeling short of breath and is still on oxygen. She also states that she still weak. She is walking back and forth to the bathroom. She also has more cough today and states that her sputum is more yellow. She also stated that with her cough it is causing her have a little bit of chest discomfort. She denies any palpitations, wheezes, sweats, fevers, chills. 04/13/22 1100 Patient was okay. Patient has increased shortness of breath. She denied any coughing. She also denies any swelling and states that she is little short of breath. She denies any chest pain or sputum production. Patient does wear oxygen at home. Upon auscultation of the lungs it was noted the patient is very wheezy on expiration. She currently denies any constipation or
[2022-04-15] MEDS: NICOTINE (*PBKC) 21 MG PATCH 1 PATCH TRANSDERM (13:09)
[2022-04-15] MEDS: ACETAMINOPHEN 325 MG TABLET 650 MG PO ×2 (17:19→21:28)
[2022-04-16] VITALS (12 sets, daily range): BP systolic 110–124; BP diastolic 64–74; PULSE 75–84; RESP 16–20; TEMP 36.1–36.8; O2SAT 92–99
--- NOTE | 2022-04-16 01:33 | PCRCNOTE ---
Patient states she does not want her Q4 treatment until 8am because she want to sleep.
[2022-04-16] MEDS: ALBUTEROL SULFATE NEB 2.5 MG/3 ML INH INHALATION ×5 (04:55→20:45)
[2022-04-16] MEDS: IPRATROPIUM BR 0.02% INH SOLN 0.5 MG/2.5 ML VIAL INHALATION ×5 (04:55→20:45)
[2022-04-16 06:08] LABS: Basophils Percent Auto 0.3 % (0.2-1.2); Eosinophils Absolute Auto 0.1 K/mm3 (0-0.3); Eosinophils Percent Auto 0.7 % (0-4.4); Hematocrit 34.3 % (37.0-47.0); Hemoglobin 10.7 g/dL (12.0-15.0); Immature Granulocyte Absolute 0.14 K/mm3 (0.00-0.031); Immature Granulocyte Percent A 1.4 % (0-0.5); Lymphocytes Absolute Auto 1.68 K/mm3 (0.9-3.2); Lymphocytes Percent Auto 16.7 % (18.3-44.2); Mean Corpuscular HGB Conc 31.2 g/dl (32-36); Mean Corpuscular Hemoglobin 31.8 pg (26-34); Mean Corpuscular Volume 102.1 fl (80-100); Mean Platelet Volume 8.6 fl (7.4-10.4); Monocytes Absolute Auto 0.7 K/mm3 (0.1-0.6); Monocytes Percent Auto 7.3 % (2.6-8.5); Neutrophils Absolute Auto 7.4 K/mm3 (1.3-6.7); Neutrophils Percent Auto 73.6 % (45.5-73.1); Platelet Count Result 595 k/mm3 (150-375); Red Blood Count 3.36 M/mm3 (4.2-5.4); White Blood Count 10.1 K/mm3 (4.5-10.0)
[2022-04-16 06:31] LABS: Alanine Aminotransferase 34 U/L (6-35); Alkaline Phosphatase 114 U/L (38-126); Aspartate Amino Transferase 28 U/L (14-36); Bilirubin,Total 0.1 mg/dL (0.2-1.3); Blood Urea Nitrogen 20 mg/dL (7-17); Calcium 8.9 mg/dL (8.4-10.2); Carbon Dioxide > 40 mmol/L (22-30); Chloride 92 mmol/L (98-107); Estimated CRCL calculation 64 ml/min; Estimated Glomerular Filt Rate > 60; Glucose 237 mg/dL (65-110); Magnesium 1.9 mg/dL (1.6-2.3); Potassium 3.8 mmol/L (3.4-5.0); Sodium 141 mmol/L (137-145)
[2022-04-16] MEDS: ACETAMINOPHEN 325 MG TABLET 650 MG PO ×2 (09:00→17:41)
[2022-04-16] MEDS: ENOXAPARIN 40 MG/0.4 ML SYRINGE SUB-Q (09:00)
[2022-04-16] MEDS: NICOTINE (*PBKC) 4 MG GUM PO (09:01)
[2022-04-16] MEDS: SERTRALINE HCL 50 MG TABLET 100 MG PO (09:03)
[2022-04-16] MEDS: NICOTINE (*PBKC) 21 MG PATCH 1 PATCH TRANSDERM (09:03)
[2022-04-16] MEDS: predniSONE 20 MG TABLET 40 MG PO (09:03)
[2022-04-16] MEDS: GABAPENTIN 300 MG CAPSULE PO ×2 (09:03→17:40)
[2022-04-16] MEDS: hydroCHLOROthiazide 12.5 MG CAPSULE PO (09:03)
[2022-04-16] MEDS: ALPRAZolam (*CRX) 0.25 MG TABLET PO ×2 (09:05→17:40)
--- NOTE | 2022-04-16 10:00 | PM.IMPN ---
Progress Note: A&P Assessment and Plan (1) Community acquired pneumonia: Code(s): J18.9 - Pneumonia, unspecified organism Status: Acute Assessment and Plan: WBC is 24.2, trending down currently 10.1 Chest xray shows bibasilar disease representing pneumonia or edema 04/13/22 Repeat chest xray showed worsening PNA in the left lower lobe DC azithromycin, switch ceftriaxone to cefdinir Sputum collected and pending Urinary antigens pneumococcal and legionella pending (2) COPD exacerbation: Code(s): J44.1 - Chronic obstructive pulmonary disease with (acute) exacerbation Status: Acute Assessment and Plan: Neb treatments Prednisone 40mg PO x 5 days Could be an acute exacerbation mixed with pneumonia Sputum culture pending Wheezing better today remains on supplemental oxygen Chest xray as above Continue antibiotics (3) Tobacco abuse: Code(s): Z72.0 - Tobacco use Status: Acute Assessment and Plan: Smoking cessation is imperative and was discussed. She has cut back heavily over the last several weeks. Patch and gum PRN (4) Hypertension: Code(s): I10 - Essential (primary) hypertension Status: Acute Assessment and Plan: BP 110/64 Blood pressures were reviewed and they are reasonable. Continue antihypertensives Trend BP Adjust therapy as indicated (5) Daily consumption of alcohol: Code(s): Z78.9 - Other specified health status Status: Acute Assessment and Plan: She denies ever having signs or symptoms of alcohol withdrawal. Will initiate CIWA protocol, however. (6) Hypokalemia: Code(s): E87.6 - Hypokalemia Status: Acute Assessment and Plan: K 3.8 Potassium will be replaced Trend potassium Time Spent With Patient Time with patient: Greater than 35 minutes Subjective Date/time seen: 04/16/22 10:00 Interval history: 04/16/22 1000 patient stated they were able to turn down her oxygen however now she is having a lot of coughing and is feeling short of breath at times. She did state that she feels congested and has been blowing her nose a lot. She feels pretty weak. She also states that she is really nervous about going home and that her house is 2 levels and that she might not be able to go up and down the stairs. Reiterated to her today that she will most likely need oxygen at home. I also asked her to get up and walk around the unit for further agility and strength training. 04/15/22 1000 Patient is still requiring oxygen. She is currently on 3L. She is unable to be weaned at this time. Oxygen was turned off, however, she was not able to maintain her saturations and was noted to be 78% on room air. She denies any chest pain, however she is still short of breath, and she is having some coughing spells. She does not seem to be understanding that she will more than likely will need oxygen. However, would like to know that she is setup for follow up upon discharge. Chest x-ray does show some worsening in the left lower lobe. She follows with Dr. Mcnair in [place] [phone] 04/14/22 1115 Patient is sitting up in bed. Patient states that she is feeling better today however she still is feeling short of breath and is still on oxygen. She also states that she still weak. She is walking back and forth to the bathroom. She also has more cough today and states that her sputum is more yellow. She also stated that with her cough it is causing her have a little bit of chest discomfort. She denies any palpitations, wheezes, sweats, fevers, chills. 04/13/22 1100 Patient was okay. Patient has increased shortness of breath. She denied any coughing. She also denies any swelling and states that she is little short of breath. She denies any chest pain or sputum production. Patient does wear oxygen at home. Upon auscultatio
[2022-04-16] MEDS: CEFDINIR 300 MG CAPSULE PO ×2 (11:11→20:11)
[2022-04-16] MEDS: guaiFENesin 200 MG/10 ML UDC PO (17:41)
[2022-04-16 19:10] LABS: Pneumococcal Antigen Urine Detected (Not Detected)
[2022-04-17] VITALS (14 sets, daily range): BP systolic 125–130; BP diastolic 62–80; PULSE 75–101; RESP 12–20; TEMP 29.4–36.7; O2SAT 85–99
--- NOTE | 2022-04-17 02:13 | PC.NURSE ---
This RN has personally reviewed RN-License Pending Enrico Ge's charting and will be reviewing until the end of this shift.
--- NOTE | 2022-04-17 06:07 | PCRCNOTE ---
Patient refused her 0000 and 0400 breathing treatments. She did not want to be awakened.
[2022-04-17 07:21] LABS: Basophils Percent Auto 0.2 % (0.2-1.2); Eosinophils Absolute Auto 0.1 K/mm3 (0-0.3); Eosinophils Percent Auto 1.4 % (0-4.4); Hematocrit 36.2 % (37.0-47.0); Hemoglobin 11.6 g/dL (12.0-15.0); Immature Granulocyte Absolute 0.12 K/mm3 (0.00-0.031); Immature Granulocyte Percent A 1.2 % (0-0.5); Lymphocytes Absolute Auto 2.14 K/mm3 (0.9-3.2); Lymphocytes Percent Auto 21.3 % (18.3-44.2); Mean Corpuscular Volume 103.1 fl (80-100); Mean Platelet Volume 8.6 fl (7.4-10.4); Monocytes Absolute Auto 0.8 K/mm3 (0.1-0.6); Monocytes Percent Auto 7.9 % (2.6-8.5); Neutrophils Absolute Auto 6.9 K/mm3 (1.3-6.7); Platelet Count Result 599 k/mm3 (150-375); Red Blood Count 3.51 M/mm3 (4.2-5.4); Red Cell Distribution Width 13.2 % (11.5-14.5); White Blood Count 10.1 K/mm3 (4.5-10.0)
[2022-04-17] MEDS: ALBUTEROL SULFATE NEB 2.5 MG/3 ML INH INHALATION ×4 (07:42→20:47)
[2022-04-17] MEDS: IPRATROPIUM BR 0.02% INH SOLN 0.5 MG/2.5 ML VIAL INHALATION ×4 (07:43→20:47)
[2022-04-17 07:49] LABS: Alanine Aminotransferase 26 U/L (6-35); Albumin Level 3.1 g/dL (3.5-5.1); Alkaline Phosphatase 99 U/L (38-126); Aspartate Amino Transferase 25 U/L (14-36); Bilirubin,Total 0.1 mg/dL (0.2-1.3); Blood Urea Nitrogen 20 mg/dL (7-17); Calcium 8.8 mg/dL (8.4-10.2); Carbon Dioxide > 40 mmol/L (22-30); Chloride 92 mmol/L (98-107); Estimated CRCL calculation 75 ml/min; Estimated Glomerular Filt Rate > 60; Glucose 150 mg/dL (65-110); Magnesium 2.1 mg/dL (1.6-2.3); Potassium 3.6 mmol/L (3.4-5.0); Sodium 141 mmol/L (137-145)
[2022-04-17] MEDS: ACETAMINOPHEN 325 MG TABLET 650 MG PO ×2 (08:25→18:34)
[2022-04-17] MEDS: ENOXAPARIN 40 MG/0.4 ML SYRINGE SUB-Q (08:25)
[2022-04-17] MEDS: guaiFENesin 200 MG/10 ML UDC PO ×2 (08:25→18:35)
[2022-04-17] MEDS: GABAPENTIN 300 MG CAPSULE PO ×2 (08:26→17:03)
[2022-04-17] MEDS: CEFDINIR 300 MG CAPSULE PO ×2 (08:26→20:43)
[2022-04-17] MEDS: ALPRAZolam (*CRX) 0.25 MG TABLET PO ×2 (08:26→17:03)
[2022-04-17] MEDS: SERTRALINE HCL 50 MG TABLET 100 MG PO (08:26)
[2022-04-17] MEDS: NICOTINE (*PBKC) 21 MG PATCH 1 PATCH TRANSDERM (08:27)
[2022-04-17] MEDS: hydroCHLOROthiazide 12.5 MG CAPSULE PO (08:27)
[2022-04-17] MEDS: predniSONE 20 MG TABLET 40 MG PO (08:27)
--- NOTE | 2022-04-17 12:00 | P.PNIM_ITS ---
Progress Note: A&P Assessment and Plan (1) Community acquired pneumonia: Code(s): J18.9 - Pneumonia, unspecified organism Status: Acute Assessment and Plan: * WBC is 24.2, trending down currently 10.1 * Chest xray shows bibasilar disease representing pneumonia or edema 04/13/22 * Repeat chest xray showed worsening PNA in the left lower lobe 04/15/22 * Repeat chest xray in the am * DC azithromycin, switch ceftriaxone to cefdinir * Sputum culture not performed due to quality * Urinary antigens pneumococcal was detected * Legionella pending (2) COPD exacerbation: Code(s): J44.1 - Chronic obstructive pulmonary disease with (acute) exacerbation Status: Acute Assessment and Plan: * Neb treatments * Prednisone 40mg PO x 5 days * Could be an acute exacerbation mixed with pneumonia * Sputum culture not able to be performed * Wheezing better today * On and off oxygen, needs a home o2 eval * Chest xray as above * Continue antibiotics (3) Tobacco abuse: Code(s): Z72.0 - Tobacco use Status: Acute Assessment and Plan: * Smoking cessation is imperative and was discussed. * She has cut back heavily over the last several weeks. * Patch and gum PRN (4) Hypertension: Code(s): I10 - Essential (primary) hypertension Status: Acute Assessment and Plan: * BP 125/62 * Blood pressures were reviewed and they are reasonable. * Continue antihypertensives * Trend BP * Adjust therapy as indicated (5) Daily consumption of alcohol: Code(s): Z78.9 - Other specified health status Status: Acute Assessment and Plan: She denies ever having signs or symptoms of alcohol withdrawal. Will initiate CIWA protocol, however. (6) Hypokalemia: Code(s): E87.6 - Hypokalemia Status: Acute Assessment and Plan: * K 3.6 * Potassium will be replaced * Trend potassium Plan Blood culture positive for staph hominis, which is likely a contaminate Time Spent With Patient Time with patient: Greater than 35 minutes Subjective Date/time seen: 04/17/22 1200 Interval history: 04/17/22 1200 patient appears to be doing better. I did going to the room and she was off oxygen. She states that she feels better but she seems apprehensive about being discharged at this time. She does state that she was able to walk around the unit twice yesterday with her oxygen felt comfortable. She also stated that even though she is off the oxygen she did drop A few times. Nursing head but the patient back on oxygen this afternoon due to the patient being in the 80s. Will do a home O2 eval and discharge patient tomorrow. 04/16/22 1000 patient stated they were able to turn down her oxygen however now she is having a lot of coughing and is feeling short of breath at times. She did state that she feels congested and has been blowing her nose a lot. She feels pretty weak. She also states that she is really nervous about going home and that her house is 2 levels and that she might not be able to go up and down the stairs. Reiterated to her today that she will most likely need oxygen at home. I also asked her to get up and walk around the unit for further agility and strength training. 04/15/22 1000 Patient is still requiring oxygen. She is currently on 3L. She is unable to be weaned at this time. Oxygen was turned off, however, she was not able to maintain
--- NOTE | 2022-04-17 12:00 | PM.IMPN ---
Progress Note: A&P Assessment and Plan (1) Community acquired pneumonia: Code(s): J18.9 - Pneumonia, unspecified organism Status: Acute Assessment and Plan: WBC is 24.2, trending down currently 10.1 Chest xray shows bibasilar disease representing pneumonia or edema 04/13/22 Repeat chest xray showed worsening PNA in the left lower lobe 04/15/22 Repeat chest xray in the am DC azithromycin, switch ceftriaxone to cefdinir Sputum culture not performed due to quality Urinary antigens pneumococcal was detected Legionella pending (2) COPD exacerbation: Code(s): J44.1 - Chronic obstructive pulmonary disease with (acute) exacerbation Status: Acute Assessment and Plan: Neb treatments Prednisone 40mg PO x 5 days Could be an acute exacerbation mixed with pneumonia Sputum culture not able to be performed Wheezing better today On and off oxygen, needs a home o2 eval Chest xray as above Continue antibiotics (3) Tobacco abuse: Code(s): Z72.0 - Tobacco use Status: Acute Assessment and Plan: Smoking cessation is imperative and was discussed. She has cut back heavily over the last several weeks. Patch and gum PRN (4) Hypertension: Code(s): I10 - Essential (primary) hypertension Status: Acute Assessment and Plan: BP 125/62 Blood pressures were reviewed and they are reasonable. Continue antihypertensives Trend BP Adjust therapy as indicated (5) Daily consumption of alcohol: Code(s): Z78.9 - Other specified health status Status: Acute Assessment and Plan: She denies ever having signs or symptoms of alcohol withdrawal. Will initiate CIWA protocol, however. (6) Hypokalemia: Code(s): E87.6 - Hypokalemia Status: Acute Assessment and Plan: K 3.6 Potassium will be replaced Trend potassium Plan Blood culture positive for staph hominis, which is likely a contaminate Time Spent With Patient Time with patient: Greater than 35 minutes Subjective Date/time seen: 04/17/22 1200 Interval history: 04/17/22 1200 patient appears to be doing better. I did going to the room and she was off oxygen. She states that she feels better but she seems apprehensive about being discharged at this time. She does state that she was able to walk around the unit twice yesterday with her oxygen felt comfortable. She also stated that even though she is off the oxygen she did drop A few times. Nursing head but the patient back on oxygen this afternoon due to the patient being in the 80s. Will do a home O2 eval and discharge patient tomorrow. 04/16/22 1000 patient stated they were able to turn down her oxygen however now she is having a lot of coughing and is feeling short of breath at times. She did state that she feels congested and has been blowing her nose a lot. She feels pretty weak. She also states that she is really nervous about going home and that her house is 2 levels and that she might not be able to go up and down the stairs. Reiterated to her today that she will most likely need oxygen at home. I also asked her to get up and walk around the unit for further agility and strength training. 04/15/22 1000 Patient is still requiring oxygen. She is currently on 3L. She is unable to be weaned at this time. Oxygen was turned off, however, she was not able to maintain her saturations and was noted to be 78% on room air. She denies any chest pain, however she is still short of breath, and she is having some coughing spells. She does not seem to be understanding that she will more than likely will need oxygen. However, would like to know that she is setup for follow up upon discharge. Chest x-ray does show some worsening in the left lower lobe. She follows with Dr. Mcnair in [place] [phone] 04/14/22 1115 Patient is sitting up
[2022-04-17] MEDS: NICOTINE (*PBKC) 4 MG GUM PO ×2 (17:04→18:35)
[2022-04-18] VITALS (10 sets, daily range): BP systolic 126–133; BP diastolic 67–85; PULSE 87–102; RESP 16–24; TEMP 36.5–36.9; O2SAT 93–95
[2022-04-18] MEDS: IPRATROPIUM BR 0.02% INH SOLN 0.5 MG/2.5 ML VIAL INHALATION ×3 (02:37→15:40)
[2022-04-18] MEDS: ALBUTEROL SULFATE NEB 2.5 MG/3 ML INH INHALATION ×3 (02:37→15:40)
[2022-04-18 06:17] LABS: Basophils Percent Auto 0.3 % (0.2-1.2); Eosinophils Absolute Auto 0.1 K/mm3 (0-0.3); Eosinophils Percent Auto 1.3 % (0-4.4); Hematocrit 38.3 % (37.0-47.0); Immature Granulocyte Absolute 0.17 K/mm3 (0.00-0.031); Immature Granulocyte Percent A 1.5 % (0-0.5); Lymphocytes Absolute Auto 2.47 K/mm3 (0.9-3.2); Lymphocytes Percent Auto 22.3 % (18.3-44.2); Mean Corpuscular HGB Conc 31.3 g/dl (32-36); Mean Corpuscular Hemoglobin 32.2 pg (26-34); Mean Corpuscular Volume 102.7 fl (80-100); Mean Platelet Volume 8.5 fl (7.4-10.4); Monocytes Absolute Auto 0.8 K/mm3 (0.1-0.6); Monocytes Percent Auto 7.4 % (2.6-8.5); Neutrophils Absolute Auto 7.4 K/mm3 (1.3-6.7); Neutrophils Percent Auto 67.2 % (45.5-73.1); Platelet Count Result 648 k/mm3 (150-375); Red Blood Count 3.73 M/mm3 (4.2-5.4); Red Cell Distribution Width 13.3 % (11.5-14.5); White Blood Count 11.1 K/mm3 (4.5-10.0)
[2022-04-18 06:21] LABS: Alanine Aminotransferase 28 U/L (6-35); Albumin Level 3.5 g/dL (3.5-5.1); Alkaline Phosphatase 117 U/L (38-126); Anion Gap 7 mmol/L (8-16); Aspartate Amino Transferase 27 U/L (14-36); Bilirubin,Total 0.2 mg/dL (0.2-1.3); Blood Urea Nitrogen 22 mg/dL (7-17); Calcium 9.2 mg/dL (8.4-10.2); Carbon Dioxide 36 mmol/L (22-30); Chloride 95 mmol/L (98-107); Estimated CRCL calculation 64 ml/min; Estimated Glomerular Filt Rate > 60; Glucose 206 mg/dL (65-110); Magnesium 2.1 mg/dL (1.6-2.3); Potassium 4.2 mmol/L (3.4-5.0); Sodium 138 mmol/L (137-145)
[2022-04-18] MEDS: SERTRALINE HCL 50 MG TABLET 100 MG PO (09:01)
[2022-04-18] MEDS: ENOXAPARIN 40 MG/0.4 ML SYRINGE SUB-Q (09:01)
[2022-04-18] MEDS: ALPRAZolam (*CRX) 0.25 MG TABLET PO ×2 (09:01→17:33)
[2022-04-18] MEDS: GABAPENTIN 300 MG CAPSULE PO ×2 (09:01→17:33)
[2022-04-18] MEDS: CEFDINIR 300 MG CAPSULE PO (09:02)
[2022-04-18] MEDS: hydroCHLOROthiazide 12.5 MG CAPSULE PO (09:02)
--- NOTE | 2022-04-18 11:15 | P.DS_ITS ---
DS: Admitting Diagnosis Discharge Date 04/18/22 1115 Admitting Diagnosis PNA, COPD exacerbation DS: Discharge Diagnosis Discharge Diagnosis (1) Community acquired pneumonia: Code(s): J18.9 - Pneumonia, unspecified organism Status: Acute Assessment and Plan: * WBC is 24.2, trending down currently 10.1 * Chest xray shows bibasilar disease representing pneumonia or edema 04/13/22 * Repeat chest xray showed worsening PNA in the left lower lobe 04/15/22 * Repeat chest xray in the am * DC azithromycin, switch ceftriaxone to cefdinir * Sputum culture not performed due to quality * Urinary antigens pneumococcal was detected * Legionella pending (2) COPD exacerbation: Code(s): J44.1 - Chronic obstructive pulmonary disease with (acute) exacerbation Status: Acute Assessment and Plan: * Neb treatments * Prednisone 40mg PO x 5 days * Could be an acute exacerbation mixed with pneumonia * Sputum culture not able to be performed * Wheezing better today * On and off oxygen, needs a home o2 eval * Chest xray as above * Continue antibiotics (3) Tobacco abuse: Code(s): Z72.0 - Tobacco use Status: Acute Assessment and Plan: * Smoking cessation is imperative and was discussed.? * She has cut back heavily over the last several weeks. * Patch and gum PRN (4) Hypertension: Code(s): I10 - Essential (primary) hypertension Status: Acute Assessment and Plan: * BP 133/85 * Blood pressures were reviewed and they are reasonable. * Continue antihypertensives * Trend BP * Adjust therapy as indicated (5) Daily consumption of alcohol: Code(s): Z78.9 - Other specified health status Status: Acute Assessment and Plan: She denies ever having signs or symptoms of alcohol withdrawal. Will initiate CIWA protocol, however. (6) Hypokalemia: Code(s): E87.6 - Hypokalemia Status: Acute Assessment and Plan: * K 4.2 * Potassium will be replaced * Trend potassium DS: Summary Hospital Course Hospital Course: Patient is 61-year-old female with a past medical history of COPD, hypertension, tobacco abuse who presented to the ED with complaints shortness of breath. Patient stated that she had not been feeling well for over week. Upon arrival patient was noted to have a saturation of 82% on room air. Chest x-ray indicated pneumonia. Patient was started on IV ceftriaxone and azithromycin. Patient was also given Solu-Medrol and was switched to prednisone for COPD exacerbation. Patient did have increase in wheezes and cough with sputum production. Labs have been on trend and white blood cell count was noted to be elevated at 24.2. Patient's white count is now 11.1. Blood pressure had been on trend. Patient was also noted to be hypokalemic and potassium was suppl emented as indicated per labs. Throughout the course patient has been on and off oxygen. However, she is noted to desaturate with activity. Supplemental oxygen is titrated to maintain a saturation greater than 90%. Patient has been able to walk around the unit. She has been having anxiety of going home, as she has stairs and a multi-level home. She does encounter some shortness of breath, however, it does resolve with rest. She has been having a cough, that she stated was causing h
--- NOTE | 2022-04-18 11:15 | PM.DS ---
DS: Admitting Diagnosis Discharge Date 04/18/22 1115 Admitting Diagnosis PNA, COPD exacerbation DS: Discharge Diagnosis Discharge Diagnosis (1) Community acquired pneumonia: Code(s): J18.9 - Pneumonia, unspecified organism Status: Acute Assessment and Plan: WBC is 24.2, trending down currently 10.1 Chest xray shows bibasilar disease representing pneumonia or edema 04/13/22 Repeat chest xray showed worsening PNA in the left lower lobe 04/15/22 Repeat chest xray in the am DC azithromycin, switch ceftriaxone to cefdinir Sputum culture not performed due to quality Urinary antigens pneumococcal was detected Legionella pending (2) COPD exacerbation: Code(s): J44.1 - Chronic obstructive pulmonary disease with (acute) exacerbation Status: Acute Assessment and Plan: Neb treatments Prednisone 40mg PO x 5 days Could be an acute exacerbation mixed with pneumonia Sputum culture not able to be performed Wheezing better today On and off oxygen, needs a home o2 eval Chest xray as above Continue antibiotics (3) Tobacco abuse: Code(s): Z72.0 - Tobacco use Status: Acute Assessment and Plan: Smoking cessation is imperative and was discussed.? She has cut back heavily over the last several weeks. Patch and gum PRN (4) Hypertension: Code(s): I10 - Essential (primary) hypertension Status: Acute Assessment and Plan: BP 133/85 Blood pressures were reviewed and they are reasonable. Continue antihypertensives Trend BP Adjust therapy as indicated (5) Daily consumption of alcohol: Code(s): Z78.9 - Other specified health status Status: Acute Assessment and Plan: She denies ever having signs or symptoms of alcohol withdrawal. Will initiate CIWA protocol, however. (6) Hypokalemia: Code(s): E87.6 - Hypokalemia Status: Acute Assessment and Plan: K 4.2 Potassium will be replaced Trend potassium DS: Summary Hospital Course Hospital Course: Patient is 61-year-old female with a past medical history of COPD, hypertension, tobacco abuse who presented to the ED with complaints shortness of breath. Patient stated that she had not been feeling well for over week. Upon arrival patient was noted to have a saturation of 82% on room air. Chest x-ray indicated pneumonia. Patient was started on IV ceftriaxone and azithromycin. Patient was also given Solu-Medrol and was switched to prednisone for COPD exacerbation. Patient did have increase in wheezes and cough with sputum production. Labs have been on trend and white blood cell count was noted to be elevated at 24.2. Patient's white count is now 11.1. Blood pressure had been on trend. Patient was also noted to be hypokalemic and potassium was supplemented as indicated per labs. Throughout the course patient has been on and off oxygen. However, she is noted to desaturate with activity. Supplemental oxygen is titrated to maintain a saturation greater than 90%. Patient has been able to walk around the unit. She has been having anxiety of going home, as she has stairs and a multi-level home. She does encounter some shortness of breath, however, it does resolve with rest. She has been having a cough, that she stated was causing her to have some increased chest pain. Cough syrup was added and chest pain was resolved. Appointment has been made with her healthcare business analyst for further follow up. Patient is stable for discharge at this time. Patient denies any chest pain, nausea, vomiting, diarrhea, constipation, weakness or fatigue. Patient still does have some shortness of breath however it resolved really quickly with rest. Patient stable for discharge per labs and vital signs. Status at Discharge Functional status at discharge: independent ambulation Overall status at discharge:
[2022-04-18] MEDS: NICOTINE (*PBKC) 21 MG PATCH 1 PATCH TRANSDERM (12:29)
[2022-04-18] MEDS: LORATADINE 5 MG TABLET PO (12:29)
--- NOTE | 2022-04-18 12:54 | PCRCNOTE ---
HOME O2 EVAL COMPLETE, NO REQUIREMENTS
--- NOTE | 2022-04-18 14:03 | PCRCNOTE ---
Window of time for administration has passed. See next scheduled administration.
[2022-04-18 14:14] LABS: Mycoplasma IgM Antibody Titer 398 U/mL (<770)
[2022-04-18] MEDS: guaiFENesin 200 MG/10 ML UDC PO (17:33)
[2022-04-19 19:20] LABS: Legionella pneumophila Ag Ur Not Detected (Not Detected)
== END 2022-04-18 18:03 | disposition home or self-care (01) | DRG 139 ==
LOC: ANHED 15:07 → ANH3MEDSUR 17:28
PROVIDERS: Physician Assistant; Admitting Provider Internal Medicine; Emergency Provider Preventive Medicine Aerospace Medicine; PCP Internal Medicine Pulmonary Disease; Visit Provider Nurse Practitioner
DX: J18.9 Pneumonia, unspecified organism (principal); J44.0 Chronic obstructive pulmonary disease with (acute) lower respiratory infection; J44.1 Chronic obstructive pulmonary disease with (acute) exacerbation; R09.02 Hypoxemia; E87.6 Hypokalemia; F17.210 Nicotine dependence, cigarettes, uncomplicated; I10 Essential (primary) hypertension; Z20.822 Contact with and (suspected) exposure to COVID-19; Z78.9 Other specified health status; Z79.899 Other long term (current) drug therapy; Z88.0 Allergy status to penicillin
CPT/HCPCS: 36415; 71045; 80053; 83605; 83735; 83880; 84484; 85025; 85027; 86738; 87040; 87070; 87077; 87186; 87205; 87449; 87502; 87899; 93005; 94618; 94640; 96365; 96367; 96375; 99285; A9270; C9803; J0131; J0456; J0696; J1650; J2060; J3475; J7512; U0003; U0005

== ENCOUNTER 2023-03-15 09:24 | Inpatient (IN) | payer OTHER, SELFPAY ==
[2023-03-15] VITALS (33 sets, daily range): BP systolic 58–111; BP diastolic 26–80; PULSE 95–117; RESP 19–30; TEMP 36.4–37.2; O2SAT 85–100; BMI 19.8
--- NOTE | ~2023-03-15 | US_ITS ---
EXAMINATION: US abdomen limited DATE: 03/16/2023 09:13 INDICATION: Right upper quadrant pain TECHNIQUE: Multiple grayscale and Doppler ultrasound images of the abdomen were obtained. COMPARISON: None available FINDINGS: The head and body of the pancreas are normal. The pancreatic tail is obscured by bowel gas. The liver is normal with normal echogenicity and echotexture. No surface nodularity. Normal hepatope vania flow in the main portal vein. The gallbladder is normal with no abnormal wall thickening, pericho lecystic fluid or stones. The cystic duct is prominent. The mildly enlarged common bile duct measures 7 mm. There was no sonographic Dowell sign, sensitivity decreased by pain medication. IMPRESSION: 1. Mild enlargement of the common bile duct. Reviewed, dictated and finalized at location L.
--- NOTE | ~2023-03-15 | XR_ITS ---
Portable chest x-ray Comparison: 03/15/2023 Clinical History: Pneumonia Findings: Right upper lobe pneumonia similar to prior exam. Right IJ line is similar to prior exam. Left lung remains clear. Cardiomediastinal silhouette is stable. Bones and soft tissues are unremark able. Impression: Stable right upper lobe pneumonia. Right IJ line in place. Reviewed, dictated and finalized at location . Impression: Stable right upper lobe pneumonia. Right IJ line in place.
--- NOTE | ~2023-03-15 | XR_ITS ---
XR chest 1V portable DATE: 03/19/2023 05:21 INDICATION: Pneumonia TECHNIQUE: Portable AP chest on 03/19/2023 at 0515 hours COMPARISON: 03/18/2022 portable AP chest at 0549 hours FINDINGS: There is persistent patchy consolidating infiltrate in the right upper lobe bordering the m inor fissure. Mild infiltrate or atelectasis at the lung bases. Mild blunting of the costophrenic ang les may indicate small pleural effusions. Bilateral hyperinflation, suggesting COPD. Cardiac and mediastinal silhouettes are unremarkable. Right internal jugular central venous catheter tip overlies the proximal superior vena cava. No evide nce of pneumothorax. IMPRESSION: No significant change since 03/28/2023 Reviewed, dictated and finalized at location A.
--- NOTE | ~2023-03-15 | CT_ITS ---
EXAMINATION: CT chest abdomen pelvis wo con DATE: 03/15/2023 11:30 INDICATION: Shortness of breath TECHNIQUE: Transaxial computed tomographic images of the chest, abdomen, and pelvis were obtained wit hout intravenous contrast. The dose-length product (DLP) was 244.33 mGy-cm. Automated exposure contro l and iterative reconstruction technique were employed. COMPARISON: 05/14/2021 FINDINGS: CHEST CT: There is mild emphysema. There are airspace opacities of the right upper lobe predominantly involving the caudal half. There are patchy airspace opacities of the right lower lobe, the right middle lobe, and the left lower lobe. There is mild right hilar and right paratracheal lymphadenopathy, likely re active. The heart size is normal. There is moderate thoracic spondylosis. ABDOMEN/PELVIS CT: Within the limitations of noncontrast examination, the liver, spleen, pancreas, gallbladder, and adre nal glands are normal. The kidneys are unremarkable. No pathologically enlarged abdominal or pelvic l ymph nodes are identified. There is no free intraperitoneal gas or evidence of bowel obstruction. The re is severe lumbar spondylosis. IMPRESSION: 1. Multifocal pneumonia, worst in the right upper lobe. 2. Mediastinal and right hilar lymphadenopathy, likely reactive. Reviewed, dictated and finalized at location B.
--- NOTE | ~2023-03-15 | XR_ITS ---
EXAMINATION: XR chest 1V portable DATE: 03/15/2023 09:55 INDICATION: Dyspnea. TECHNIQUE: A single frontal view of the chest was obtained. COMPARISON: Chest view 04/15/2022, chest CT 05/14/2021 FINDINGS: The lungs are hyperexpanded with lucencies, consistent with emphysema. There are airspace o pacities in right upper lobe, consistent with pneumonia. No pleural effusion or pneumothorax. The hea rt size is normal. There are old healed left rib fractures. IMPRESSION: 1. Right upper lobe pneumonia. 2. Emphysema. Reviewed, dictated and finalized at location A.
--- NOTE | ~2023-03-15 | XR_ITS ---
Portable chest x-ray Comparison: 03/19/2023 Clinical History: Pneumonia Findings: Persistent right upper lobe pneumonia is similar to prior exam. Possible underlying COPD. Cardiomediastinal silhouette is stable. Bones and soft tissues are unremarkable. Impression: Stable right upper lobe pneumonia. Possible underlying COPD. Reviewed, dictated and finalized at [facility]. Impression: Stable right upper lobe pneumonia. Possible underlying COPD.
--- NOTE | ~2023-03-15 | XR_ITS ---
XR chest 1V portable DATE: 03/18/2023 06:07 INDICATION: Pneumonia TECHNIQUE: Portable upright AP chest on 03/18/2023 at 0549 hours COMPARISON: 03/17/2023 portable AP chest at 0514 hours FINDINGS: Patchy consolidating right upper lobe infiltrate involving particularly the anterior segmen t appears minimally improved since 03/17/2023. Normal heart size. No pleural effusion or pulmonary vascular congestion or pneumothorax is detected. Right internal jugular central venous catheter tip overlies the very proximal superior vena cava. IMPRESSION: Right upper lobe infiltrate, minimally improved since 03/17/2023 Reviewed, dictated and finalized at location A.
--- NOTE | ~2023-03-15 | XR_ITS ---
EXAMINATION: XR chest port-a-cath/central INDICATION: Central line insertion TECHNIQUE: Portable AP chest at 1241 hours COMPARISON: 0953 hours FINDINGS: A right internal jugular central venous catheter is been inserted which ends with its tip a t the distal superior vena cava. Right upper lobe pneumonia is again noted. No pleural effusion or pn eumothorax. The cardiac mediastinal silhouette is stable. IMPRESSION: 1. Right internal jugular central venous catheter insertion. No pneumothorax. 2. Right upper lobe pneumonia. Reviewed, dictated and finalized at location B.
--- NOTE | ~2023-03-15 | XR_ITS ---
EXAMINATION: XR chest 1V portable Exam Date/Time: 03/21/2023 14:40 CDT HISTORY: COUGH Comparison: . RESULT: Lines, tubes, and devices: None. Lungs and pleura: Slightly improved right upper lobe aeration with persistent subsegmental airspace disease. New subsegmental right basilar opacity and mild right costophrenic angle blunting. Stable le ft costophrenic angle blunting. Cardiomediastinal silhouette: Stable. Other: No acute osseous or upper abdominal finding. IMPRESSION: Slightly improved subsegmental right upper lobe airspace disease may represent improved atelectasis/e carlota overlying the consolidation of pneumonia. New subsegmental atelectasis/consolidation in the right lower lobe. Small bilateral effusions. Reviewed, dictated and finalized at location K. IMPRESSION: Slightly improved subsegmental right upper lobe airspace disease may represent improved atelectasis/edema overlying the consolidation of pneumonia. New subsegmental atelectasis/consolidation in the right lower lobe. Small bilateral effusions.
--- NOTE | ~2023-03-15 | XR_ITS ---
Portable chest x-ray Comparison: 03/16/2023 Clinical History: Pneumonia Findings: Right IJ line is unchanged. Right upper lobe pneumonia is unchanged. Left lung remains juliana ar. Cardiomediastinal silhouette is stable. Bones and soft tissues are unremarkable. Impression: Stable right upper lobe pneumonia. Stable right IJ line. Reviewed, dictated and finalized at location . Impression: Stable right upper lobe pneumonia. Stable right IJ line.
--- NOTE | ~2023-03-15 | US_ITS ---
EXAMINATION: US renal BI DATE: 03/15/2023 16:09 INDICATION: Acute kidney injury. TECHNIQUE: Multiple ultrasound grayscale images of the kidneys were obtained. COMPARISON: CT dated 03/15/2023 FINDINGS: The right kidney measures 10.4 x 4.2 x 5.0 cm. The left kidney measures 9.1 x 4.8 x 5.9 cm. The kidne ys demonstrate normal echogenicity. Trace amount of perinephric fluid at both kidneys. There is no hy dronephrosis in either kidney. No stones identified. The bladder is decompressed around a Monson cath eter which limits evaluation. Essentially noted small splenule along the caudal margin of the spleen. IMPRESSION: 1. Trace amount of bilateral perinephric fluid. Normal kidneys without hydronephrosis. Reviewed, dictated and finalized at location A. IMPRESSION: 1. Trace amount of bilateral perinephric fluid. Normal kidneys without hydrone phrosis.
--- NOTE | 2023-03-15 09:30 | ECG_ITS ---
Measurements Intervals [place] Rate: 111 P: 79 CO: 128 QRS: 73 QRSD: 72 T: 70 QT: 311 QTc: 424 Interpretive Statements SINUS TACHYCARDIA POSSIBLE LEFT ATRIAL ENLARGEMENT ANTERIOR INFARCT, AGE INDETERMINATE BASELINE WANDER- AVF, V3-V5 ABNORMAL ECG COMPARED TO ECG 04/12/2022 15:06:42 MYOCARDIAL INFARCT FINDING NOW PRESENT Electronically Signed On 03-15-2023 9:44:18 CDT by Eric Valencia D.O.
[2023-03-15 09:35] LABS: Glucose Point of Care 118 mg/dl (65-105)
[2023-03-15 09:43] LABS: Alveolar/Arterial O2 Gradient 67.7 mmHg; Base Excess ABG -4.6 mEq/l (+/-2.0); Carboxyhemoglobin 0.5 % THb (0-2.0); Device NASAL CANNULA; Fractional Inspired Oxygen 28 %; HCO3 ABG 18.4 mEq/l (22.0-26.0); Methemoglobin ABG 0.1 %THb (0-1.5); Modified Allen's Test Pass; Oxygen Content ABG 16.5 %vol (16.0-22.0); Oxygen Saturation ABG 97.8 % (95.0-100.0); Oxyhemoglobin 96.4 % THb (90.0-100.0); PCO2 ABG 27.9 mmHg (35.0-45.0); PO2 FiO2 Ratio Arterial Blood 3.54 %; Site Drawn LEFT RADIAL; Total Hemoglobin 12.1 g/dL (12.0-18.0); pH ABG 7.436 (7.350-7.450)
[2023-03-15] MEDS: SODIUM CHLORIDE 0.9% IV 2,000 ML 999 ML (09:57)
--- NOTE | 2023-03-15 09:57 | ED.SOB ---
HPI - SOB/Dyspnea General Chief Complaint: Shortness of Breath/Dyspnea Stated Complaint: sob Time Seen by Provider: 03/15/23 09:29 History of Present Illness HPI Narrative: This is a 62-year-old female, past history of COPD, brought in by EMS for over the past 1-1/2 days. This is associated with cough productive of sputum without blood and associated with intermittent back pain and lightheadedness. The patient states she is used her nebs at home without improvement. EMS reports on arrival, the patient was hypoxic to the mid 60s. She was given 2 duo nebs, Solu-Medrol IV with improvement and. She was also given D10 for a blood glucose of 40. The patient complains of sharp right-sided back pain, rated 6/10 and generalized abdominal pain. Related Data Home Medications Medication Instructions Recorded Confirmed alprazolam 0.25 mg tablet 0.5 mg PO TID 12/30/20 03/15/23 gabapentin 300 mg capsule 300 mg PO BID 12/30/20 03/15/23 sertraline 100 mg tablet 100 mg PO DAILY 12/30/20 03/15/23 cyclobenzaprine 10 mg tablet 10 mg PO TID PRN Muscle Spasm 03/15/23 03/15/23 hydrochlorothiazide 25 mg tablet 25 mg PO DAILY 03/15/23 03/15/23 potassium chloride 20 mEq 20 meq PO DAILY 03/15/23 03/15/23 tablet,extended release trazodone 50 mg PO HS 03/15/23 03/15/23 Allergies Allergy/AdvReac Type Severity Reaction Status Date / Time Penicillins Allergy Intermediate HIVES Verified 03/15/23 09:45 Review of Systems Review of Systems: CONSTITUTIONAL: Denies fever, chills, or sweats. CARDIOVASCULAR: Denies chest pain, palpitations, or edema. RESPIRATORY: Cough productive of sputum without blood and dyspnea GASTROINTESTINAL: Mild abdominal pain denies nausea, vomiting, or diarrhea. GENITOURINARY: Denies dysuria or hematuria. SKIN: Denies rash or itching. MUSCULOSKELETAL: Right-sided back pain denies joint pain, or myalgia. NEUROLOGIC: Denies headache, numbness, dizziness, or weakness. PSYCHIATRIC: Denies anxiety or depression. [facility] Past Medical History Medical History Anxiety Chronic obstructive pulmonary disease Daily consumption of alcohol Hypertension Neuropathy Tobacco abuse Surgical History Surgical History History of surgery on right wrist Family History Family History Other Hypertension Social History Social History Social History: Surrogate medical decision maker: Dorian (father) or Kerwin (brother) Alfonso. Code status: Full code. Smoking packs per day: 1 Smoking cigarettes per day: 20.0 Years smoked: 45 Smoking pack-years: 45.00 Smoking status: Current every day smoker Tobacco type: cigarettes Second hand tobacco smoke exposure: No Alcohol intake: current Drinks per week: 28 Substance use: never Substance use type: does not use Lack of Transportation: No Lack of Food: Never True Current Housing: I Have Housing Concerned About Future Housing: No Difficulty Paying Gas/Electric Bills: No Difficulty Paying for Meds: No Currently Unemployed: No Education: Decline to Answer Difficulty w/ Childcare or Family Care: No Additional living arrangements comments: The patient lives in [place]. 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 Spiritual care concerns: No Exam Narrative: GENERAL: Well-developed, thin, in mild respiratory distress HEAD: Normocephalic, atraumatic. EYES: PERRLA and EOMI. ENT: Nares clear, no rhinorrhea or epistaxis. Mucous membranes dry. Oropharynx without tonsillar hypertrophy exudate or other lesions. NECK: Supple. No carotid bruits or JVD CHEST: Poor aeration, with expiratory wheezes and some rhonchi, greater on the right. Mild respiratory distress. No rales HEART: Tachycardic with regular rhythm. N
[2023-03-15] MEDS: ALBUTEROL SULFATE NEB 2.5 MG/3 ML INH 10 MG INHALATION (10:06)
[2023-03-15 10:07] LABS: Hematocrit 33.2 % (37.0-47.0); Mean Corpuscular HGB Conc 33.1 g/dl (32-36); Mean Corpuscular Volume 99.7 fl (80-100); Mean Platelet Volume 9.6 fl (7.4-10.4); Platelet Count Result 209 k/mm3 (150-375); Red Blood Count 3.33 M/mm3 (4.2-5.4); Red Cell Distribution Width 13.1 % (11.5-14.5)
--- NOTE | 2023-03-15 10:13 | PC.NURSE ---
Attempted to call pt brother, no answer at this time. Left message to return call
[2023-03-15 10:19] LABS: INR 1.2; Prothrombin Time 16.1 Seconds (11.1-14.7)
[2023-03-15 10:20] LABS: Partial Thromboplastin Time 38.6 SECONDS (22.3-36.8)
[2023-03-15 10:29] LABS: Albumin Level 2.8 g/dL (3.5-5.1); Alkaline Phosphatase 48 U/L (38-126); Anion Gap 10 mmol/L (8-16); Aspartate Amino Transferase 59 U/L (14-36); Bilirubin,Total 0.5 mg/dL (0.2-1.3); Blood Urea Nitrogen 31 mg/dL (7-17); Calcium 6.6 mg/dL (8.4-10.2); Carbon Dioxide 21 mmol/L (22-30); Chloride 87 mmol/L (98-107); Estimated CRCL calculation 16 ml/min; Estimated Glomerular Filt Rate 22; Glucose 347 mg/dL (65-110); Potassium 3.1 mmol/L (3.4-5.0); Sodium 118 mmol/L (137-145)
[2023-03-15] MEDS: AZITHROMYCIN 500 MG/NS 250 ML 500 MG/250 ML BAG 250 MG IVPB (10:30)
[2023-03-15 10:33] LABS: Alanine Aminotransferase 32 U/L (6-35)
[2023-03-15 10:35] LABS: Band Neutrophils Percent 29 % (0-6); Lymphocytes Absolute Manual 0.88 K/mm3 (1.1-4.5); Metamyelocytes Percent 10 %; Monocytes Absolute Manual 0.08 K/mm3 (0.1-0.90); Monocytes Percent Manual 1 % (3-9); Neutrophils Absolute Manual 6.24 K/mm3 (1.7-7.2); Neutrophils Percent Manual 49 % (46-73); Platelet Estimate Adequate (Adequate); Total Cells Counted 100
[2023-03-15 10:36] LABS: Hypochromasia 1+ (NORMAL); Schistocytes None Seen (NORMAL)
[2023-03-15 10:43] LABS: SARS-CoV-2 RNA PCR Negative (Negative)
[2023-03-15] MEDS: NOREPINEPHRINE 8 MG/D5W 250 ML 8 MG/250 ML BAG 9.38 MG IV CONT (11:03)
[2023-03-15] MEDS: CALCIUM GLUCONATE 1,000 MG/10 ML VIAL 2000 MG IV PUSH (11:07)
[2023-03-15] MEDS: VANCOMYCIN 750 MG/NS 250 ML 750 MG/250 ML BAG 250 MG IVPB (11:36)
[2023-03-15 13:05] LABS: Reflex Lactic Acid Yes or No Add Lactic
--- NOTE | 2023-03-15 13:15 | ADMGEN ---
This patient, Margaret Hamilton, was admitted to Intensive Care Unit-8. Patient/family oriented to hospital policies and general routines including ID bracelet, bed and alarms, visiting hours, pain management, procedures, bathroom and other care routines, personal items, smoking policy, room service/diet, and visiting hours. Information on how to activate the Rapid Response Team has been discussed. Patient/Family are encouraged to report perceived risks to care and to ask questions if they do not understand what they are told or what they should do.
[2023-03-15] MEDS: LACTATED RINGERS 500 ML 999 ML IV CONT ×2 (13:54→18:24)
[2023-03-15] MEDS: LEVALBUTEROL NEB 1.25 MG/3 ML 0.63 MG INHALATION ×2 (13:56→20:33)
[2023-03-15] MEDS: IPRATROPIUM BR 0.02% INH SOLN 0.5 MG/2.5 ML VIAL INHALATION ×2 (13:56→20:33)
--- NOTE | 2023-03-15 13:56 | WPDCNINT ---
Assessment and Plan Assessment and plan (1) Septic shock: Code(s): A41.9 - Sepsis, unspecified organism; R65.21 - Severe sepsis with septic shock Status: Acute Assessment and Plan: Patient presented with shortness of breath, hypoxia, cough productive of yellow sputum, right-sided chest and back pain. -when EMS arrived patient was hypoxic in the 60s, did receive Solu-Medrol, DuoNebs. -in the ER patient was hypotensive with systolics in the 50s -was given 2 L IV fluid bolus was centralized was inserted -patient was started on Levophed, will maintain MAP > 65 mmHg at all times for adequate end organ perfusion -patient started on ceftriaxone, azithromycin and vancomycin (03/15) -03/15: Blood cultures have been obtained and pending -03/15: MRSA screen pending -03/15: Will check sputum culture -Elevated lactic acid, will trend -will give additional IV fluid bolus 500 mL x1 IV -started on maintenance IV fluids (2) Community acquired pneumonia: Code(s): J18.9 - Pneumonia, unspecified organism Status: Acute Assessment and Plan: Likely source of septic shock is community-acquired pneumonia 03/15: Chest x-ray showed right upper lobe pneumonia, emphysema -check urine Legionella antigen, urine pneumococcal antigen and mycoplasma IgM -started on bronchodilators, Pulmozyme 03/15: CT chest, abdomen, pelvis without contrast IMPRESSION: 1. Multifocal pneumonia, worst in the right upper lobe. 2. Mediastinal and right hilar lymphadenopathy, likely reactive. (3) Chronic obstructive pulmonary disease: Code(s): J44.9 - Chronic obstructive pulmonary disease, unspecified Status: Acute Assessment and Plan: Continue bronchodilators, Solu-Medrol for wheezing -patient placed on Vapotherm (4) Acute kidney injury: Code(s): N17.9 - Acute kidney failure, unspecified Status: Acute Assessment and Plan: Acute kidney injury with creatinine of 2.3 on admission (baseline creatinine 0.6 in April 2022) -had to hypotension, infection/pneumonia/septic shock, hypovolemia with decreased oral intake -patient has been adequately fluid-resuscitated, will give additional 500 mL IV fluid bolus in the ICU -continue maintain -check renal ultrasound -checked urine lytes, urine eosinophils and CK levels -will monitor urine output, renal function electrolytes (5) Hypokalemia: Code(s): E87.6 - Hypokalemia Status: Acute Assessment and Plan: Will replace potassium (6) Hyponatremia: Code(s): E87.1 - Hypo-osmolality and hyponatremia Status: Acute Assessment and Plan: Hyponatremia: Likely hypovolemic hyponatremia, patient on diuretics, prednisone, sertraline at home which all can cause hyponatremia -patient has received IV fluids -continue maintenance IV fluids with normal saline -continue to monitor sodium levels (7) Tobacco abuse: Code(s): Z72.0 - Tobacco use Status: Acute Assessment and Plan: Have counseled patient for tobacco cessation -she stated that she is going to quit smoking Plan DVT prophylaxis: Lovenox Stress ulcer prophylaxis: Protonix Nutrition: Clear liquid diet Code Status: Full code Critical Care Time Spent: 48 minutes Due to a high probability of clinically significant, life threatening deterioration, the patient required my highest level of preparedness to intervene emergently and I personally spent this critical care time directly and personally managing the patient. This critical care time included obtaining a history; examining the patient; pulse oximetry; ordering and review of studies; arranging urgent treatment with development of a management plan; evaluation of patient's response to treatment; frequent reassessment; and discussions with other providers. It was exclusive of separately billable procedures and treating other patients and teaching time. Please see Assessment and Plan section and the rest of the note f
[2023-03-15] MEDS: KCL 40 MEQ/WATER 100 ML 100 ML 25 ML IVPB (14:21)
[2023-03-15 14:22] LABS: Hematocrit 33.7 % (37.0-47.0); Hemoglobin 11.2 g/dL (12.0-15.0); Mean Corpuscular HGB Conc 33.2 g/dl (32-36); Mean Corpuscular Hemoglobin 33.2 pg (26-34); Mean Platelet Volume 9.3 fl (7.4-10.4); Platelet Count Result 194 k/mm3 (150-375); Red Blood Count 3.37 M/mm3 (4.2-5.4); White Blood Count 9.2 K/mm3 (4.5-10.0)
[2023-03-15] MEDS: PANTOPRAZOLE SODIUM IV 40 MG VIAL IV PUSH (14:22)
[2023-03-15] MEDS: CENTRAL LINE FLUSH 10 ML IV PUSH ×4 (14:22→22:39)
[2023-03-15] MEDS: SODIUM CHLORIDE 0.9% IV 1,000 ML 75 ML IV CONT (14:25)
[2023-03-15] MEDS: MORPHINE SULFATE (*CRX) 2 MG/ML INJ (14:32)
[2023-03-15 14:54] LABS: Band Neutrophils Percent 14 % (0-6); Lymphocytes Absolute Manual 0.92 K/mm3 (1.1-4.5); Monocytes Absolute Manual 0.55 K/mm3 (0.1-0.90); Monocytes Percent Manual 6 % (3-9); Neutrophils Absolute Manual 7.72 K/mm3 (1.7-7.2); Neutrophils Percent Manual 70 % (46-73); Platelet Estimate Adequate (Adequate); Total Cells Counted 100
[2023-03-15 14:55] LABS: Schistocytes None Seen (NORMAL)
[2023-03-15] MEDS: methylPREDNISolone SOD SUCC 40 MG VIAL IV PUSH ×2 (15:00→18:24)
[2023-03-15 15:02] LABS: Alanine Aminotransferase 78 U/L (6-35); Albumin Level 2.6 g/dL (3.5-5.1); Alkaline Phosphatase 66 U/L (38-126); Anion Gap 12 mmol/L (8-16); Aspartate Amino Transferase 242 U/L (14-36); Bilirubin,Total 0.6 mg/dL (0.2-1.3); Blood Urea Nitrogen 30 mg/dL (7-17); Calcium 7.2 mg/dL (8.4-10.2); Carbon Dioxide 17 mmol/L (22-30); Chloride 96 mmol/L (98-107); Estimated CRCL calculation 19 ml/min; Estimated Glomerular Filt Rate 25; Glucose 236 mg/dL (65-110); Magnesium 1.1 mg/dL (1.6-2.3); Sodium 125 mmol/L (137-145)
[2023-03-15 15:02] LABS: Creatinine Urine 121.8 mg/dL
[2023-03-15 15:13] LABS: Potassium Urine Random 51.7 meq/L; Sodium Urine Random 25 meq/L
[2023-03-15 15:42] LABS: Eosinophil Urine None Seen % (None Seen); Urine Eos QC 2nd Tech Confirmed
[2023-03-15 15:50] LABS: Lactic Acid Reflex 4.2 mmol/L (0.7-2.0)
[2023-03-15 15:51] LABS: Creatine Kinase 1250 U/L (30-135)
[2023-03-15] MEDS: MAGNESIUM SULF 2 GM/WATER 50ML 2 GM/50 ML BAG IVPB (16:59)
[2023-03-15] MEDS: HYDROmorphone HCL INJ (*CRX) 1 MG/ML SYR 0.5 MG IV PUSH ×2 (17:29→22:38)
[2023-03-15 17:47] LABS: Alveolar/Arterial O2 Gradient 156.3 mmHg; Base Excess ABG -10.9 mEq/l (+/-2.0); Fractional Inspired Oxygen 40 %; HCO3 ABG 14.4 mEq/l (22.0-26.0); Oxygen Content ABG 17.6 %vol (16.0-22.0); Oxygen Saturation ABG 96.5 % (95.0-100.0); Oxyhemoglobin 95.3 % THb (90.0-100.0); PCO2 ABG 30.6 mmHg (35.0-45.0); PO2 ABG 93.7 mmHg (80.0-100.0); PO2 FiO2 Ratio Arterial Blood 2.34 %; Total Hemoglobin 13.1 g/dL (12.0-18.0)
[2023-03-15 17:49] LABS: Device NON-INVASIVE VENT; Modified Allen's Test Pass; Non-Invasive Expiratory Pressure 7 CMH2O; Non-Invasive Inspiratory Pressure 12 CMH2O; Non-Invasive Vent Rate 12 /MIN; Site Drawn LEFT RADIAL; pH ABG 7.289 (7.350-7.450)
[2023-03-15] MEDS: SODIUM BICARBONATE 8.4% 50 MEQ/50 ML SYRINGE 100 MEQ IV PUSH (18:24)
[2023-03-15 18:33] LABS: Glucose Point of Care 261 mg/dl (65-105)
[2023-03-15] MEDS: BUDESONIDE RESPULE NEB 0.5 MG/2 ML AMP INHALATION (20:33)
--- NOTE | 2023-03-15 23:08 | PM.IMHP ---
H&P: HPI History of Present Illness Date/Time: 03/15/23 23:08 Chief Complaint: Shortness of Breath Narrative: 62 y/o F with PMH of COPD, anxiety, HTN, daily alcohol use, tobacco abuse, and neuropathy presents here with SOB, new oxygen requirement, and hypoxia. Limited HPI due to patient condition. Transported today, 03/15, to ED by EMS for shortness of breath, productive cough yielding yellow sputum, intermittent chest discomfort, and lightheadedness for the past 2-3 days. Symptoms did not improve with home neb. Per EMS report, patient's initial sat on RA in the 60's and blood glucose was 40. DuoNeb x2, Solumedrol and D10 given with improvement. Remains everyday smoker. Currently complaining of headache, fatigue, and low back pain. Review of Systems Review of Systems: All systems reviewed & are unremarkable except as noted in HPI and below PMFSH Past Medical History Medical History Anxiety Chronic obstructive pulmonary disease Daily consumption of alcohol Hypertension Neuropathy Tobacco abuse Surgical History Surgical History History of surgery on right wrist Family History Family History Other Hypertension Social History Social History Social History: Surrogate medical decision maker: Dorian (father) or Kerwin (brother) Alfonso. Code status: Full code. Smoking packs per day: 1 Smoking cigarettes per day: 20.0 Years smoked: 45 Smoking pack-years: 45.00 Smoking status: Current every day smoker Tobacco type: cigarettes Second hand tobacco smoke exposure: No Alcohol intake: current Drinks per week: 28 Substance use: never Substance use type: does not use Lack of Transportation: No Lack of Food: Never True Current Housing: I Have Housing Concerned About Future Housing: No Difficulty Paying Gas/Electric Bills: No Difficulty Paying for Meds: No Currently Unemployed: No Education: Decline to Answer Difficulty w/ Childcare or Family Care: No Additional living arrangements comments: The patient lives in [place]. 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 Spiritual care concerns: No Meds Home Medications and Allergies Home Medications Medication Instructions Recorded Confirmed Type albuterol sulfate 2.5 mg/3 mL 2.5 mg (3 mL) inhalation Q6H #15 mL 12/30/20 03/15/23 Rx (0.083 %) solution for nebulization alprazolam 0.25 mg tablet 0.5 mg PO TID 12/30/20 03/15/23 History gabapentin 300 mg capsule 300 mg PO BID 12/30/20 03/15/23 History sertraline 100 mg tablet 100 mg PO DAILY 12/30/20 03/15/23 History prednisone 10 mg tablet 10 mg PO DAILY #12 tabs 04/18/22 03/15/23 Rx cyclobenzaprine 10 mg tablet 10 mg PO TID PRN Muscle Spasm 03/15/23 03/15/23 History hydrochlorothiazide 25 mg tablet 25 mg PO DAILY 03/15/23 03/15/23 History potassium chloride 20 mEq 20 meq PO DAILY 03/15/23 03/15/23 History tablet,extended release trazodone 50 mg PO HS 03/15/23 03/15/23 History Allergies Allergy/AdvReac Type Severity Reaction Status Date / Time Penicillins Allergy Intermediate HIVES Verified 03/15/23 09:45 Vital Signs Vital Signs - 24 hr 03/15/23 09:34 03/15/23 09:43 03/15/23 10:05 Temperature 97.6 F Pulse Rate 117 H 110 H 112 H Respiratory Rate 24 H 22 H Blood Pressure 58/26 L 83/69 L Pulse Oximetry 85 L 98 Oxygen Delivery Oxygen Flow Rate Fraction of Inspired Oxygen 03/15/23 10:00 03/15/23 10:11 03/15/23 10:50 Temperature Pulse Rate 112 H 115 H Respiratory Rate 24 H 26 H Blood Pressure Pulse Oximetry 98 Oxygen Delivery Nasal Cannula Oxygen Flow Rate 2 Fraction of Inspired Oxygen 03/15/23 11:03 03/15/23 11:43 03/15/23 11:30 Temperature Pulse Rate 115 H 111 H 112 H
[2023-03-16] VITALS (35 sets, daily range): BP systolic 80–115; BP diastolic 51–85; PULSE 91–105; RESP 15–34; TEMP 36.5–37.1; O2SAT 95–100
--- NOTE | 2023-03-16 | ECHO_ITS ---
Patient Info Name: Margaret Hamilton Age: 62 years : 1960 Gender: Female Ht: 60 in Wt: 100 lbs BSA: 1.38 m2 HR: 97 bpm BP: 80 / 54 mmHg Heart Rhythm: Sinus Rhythm Technical Quality: Poor Exam Date: 03/16/2023 1:49 PM Exam Location: [facility] Pulmonary Patient Status: Inpatient Admit Date: 03/15/2023 Staff Ordering Physician: Raúl Oleary MD Dry End Tester: Tara Vazquez RDCS Attending Provider: Anastasia Hu DO Referring Physician: Mamta GRIFFIN; Exam Type: CA echo dop color flow w con Study Info Indications - SEPTIC SHOCK - CARDIAC FUNCTION Complete two-dimensional, color flow and Doppler transthoracic echocardiogram is performed with contrast to opacify the left ventricle and to improve the deliniation of the left ventricle endocardial borders. Contrast/Agitated Saline Contrast/Ag. Saline: Definity Amount: 10.00 ml Administered By: Tara Vazquez RDCS Existing IV Access: Yes IV Access Condition: patent with no signs of infiltration Reason for Poor Study: poor echocardiographic windows Summary 1. Very technically difficult study with limited views despite definity contrast enhancement. Regional wall motion assessment limited due to poor endomyocardial border definition in several views. 2. Left ventricular chamber dimension is normal. 3. Left ventricular systolic function is mildly reduced, estimated at 40-45%. 4. There is mildly increased left ventricular wall thickness. 5. The left ventricular diastolic function is normal. 6. There is trace tricuspid valve regurgitation. 7. No pulmonary hypertension, estimated pulmonary arterial systolic pressure is 20 mmHg. Left Ventricle Very technically difficult study with limited views despite definity contrast enhancement. Regional wall motion assessment limited due to poor endomyocardial border definition in several views. Left ventricular chamber dimension is normal. Left ventricular systolic function is mildly reduced, estimated at 40-45%. There is mildly increased left ventricular wall thickness. The left ventricular diastolic function is normal. Right Ventricle Right ventricular chamber dimension is normal. Right ventricular systolic function is normal. Left Atria Left atrial chamber dimension is normal. Right Atria Right atrial chamber dimension is normal. Aortic Valve The aortic valve is not well visualized. There is no aortic valve stenosis. There is no aortic valve regurgitation. Pulmonic Valve The pulmonic valve is not well visualized. Mitral Valve The mitral valve has thickened leaflets. There is no mitral valve regurgitation. Tricuspid Valve The tricuspid valve leaflets are normal. There is trace tricuspid valve regurgitation. No pulmonary hypertension, estimated pulmonary arterial systolic pressure is 20 mmHg. Pericardium/Pleural The pericardium appears not well visualized. Inferior Vena Cava Normal inferior vena cava with <50% collapse upon inspiration consistent with elevated right atrial pressure, 10 mmHg. Aorta The aortic root size at the sinus of Valsalva is normal. Left Ventricular Outflow Tract Name Value Normal LVOT 2D LVOT Diameter 1.90 cm LVOT Doppler
[2023-03-16] MEDS: methylPREDNISolone SOD SUCC 40 MG VIAL IV PUSH ×4 (01:09→17:06)
[2023-03-16] MEDS: NOREPINEPHRINE 8 MG/D5W 250 ML 8 MG/250 ML BAG 13.13 MG IV CONT (01:28)
[2023-03-16] MEDS: LEVALBUTEROL NEB 1.25 MG/3 ML 0.63 MG INHALATION ×4 (02:27→19:35)
[2023-03-16] MEDS: IPRATROPIUM BR 0.02% INH SOLN 0.5 MG/2.5 ML VIAL INHALATION ×4 (02:28→19:35)
[2023-03-16] MEDS: SODIUM CHLORIDE 0.9% IV 1,000 ML 75 ML IV CONT (04:10)
[2023-03-16] MEDS: CENTRAL LINE FLUSH 10 ML IV PUSH ×4 (05:23→20:36)
[2023-03-16 05:39] LABS: Hematocrit 35.5 % (37.0-47.0); Hemoglobin 11.9 g/dL (12.0-15.0); Mean Corpuscular HGB Conc 33.5 g/dl (32-36); Mean Corpuscular Hemoglobin 32.7 pg (26-34); Mean Corpuscular Volume 97.5 fl (80-100); Mean Platelet Volume 9.3 fl (7.4-10.4); Platelet Count Result 231 k/mm3 (150-375); Red Blood Count 3.64 M/mm3 (4.2-5.4); Red Cell Distribution Width 12.7 % (11.5-14.5); White Blood Count 16.9 K/mm3 (4.5-10.0)
[2023-03-16 05:48] LABS: Alanine Aminotransferase 88 U/L (6-35); Albumin Level 2.8 g/dL (3.5-5.1); Alkaline Phosphatase 85 U/L (38-126); Anion Gap 7 mmol/L (8-16); Aspartate Amino Transferase 120 U/L (14-36); Bilirubin,Total 0.4 mg/dL (0.2-1.3); Blood Urea Nitrogen 30 mg/dL (7-17); Calcium 7.2 mg/dL (8.4-10.2); Carbon Dioxide 25 mmol/L (22-30); Chloride 102 mmol/L (98-107); Estimated CRCL calculation 32 ml/min; Estimated Glomerular Filt Rate 46; Glucose 190 mg/dL (65-110); Magnesium 1.9 mg/dL (1.6-2.3); Phosphorus 5.7 mg/dL (2.5-4.5); Potassium 3.1 mmol/L (3.4-5.0); Sodium 134 mmol/L (137-145)
[2023-03-16 05:51] LABS: Lactic Acid Reflex 1.7 mmol/L (0.7-2.0)
[2023-03-16 06:09] LABS: Band Neutrophils Percent 7 % (0-6); Monocytes Absolute Manual 0.67 K/mm3 (0.1-0.90); Monocytes Percent Manual 4 % (3-9); Neutrophils Absolute Manual 15.71 K/mm3 (1.7-7.2); Neutrophils Percent Manual 86 % (46-73); Platelet Estimate Adequate (Adequate); Total Cells Counted 100
[2023-03-16 06:10] LABS: Schistocytes None Seen (NORMAL)
[2023-03-16] MEDS: VANCOMYCIN 750 MG/NS 250 ML 750 MG/250 ML BAG 250 MG IVPB (07:11)
[2023-03-16] MEDS: BUDESONIDE RESPULE NEB 0.5 MG/2 ML AMP INHALATION ×2 (07:53→19:35)
[2023-03-16 08:26] LABS: Hepatitis B Surface Antigen Negative (Negative)
[2023-03-16 08:32] LABS: HAV RESULT Negative (Negative); Hepatitis B Core IgM Result Negative (Negative)
[2023-03-16 08:43] LABS: Hepatitis C Virus Antibody Negative (Negative)
[2023-03-16] MEDS: cefTRIAXone 2 GM/NS 100 ML 2 GM/100 ML BAG IVPB (09:28)
[2023-03-16] MEDS: KCL 40 MEQ/WATER 100 ML 100 ML 25 ML IVPB (09:28)
[2023-03-16] MEDS: ENOXAPARIN 40 MG/0.4 ML SYRINGE SUB-Q (09:29)
[2023-03-16] MEDS: PANTOPRAZOLE SODIUM IV 40 MG VIAL IV PUSH (09:29)
[2023-03-16] MEDS: AZITHROMYCIN 500 MG/NS 250 ML 500 MG/250 ML BAG 250 MG IVPB (10:39)
--- NOTE | 2023-03-16 12:31 | WPDINTPN ---
Progress Note: A&P Assessment and Plan (1) Septic shock: Code(s): A41.9 - Sepsis, unspecified organism; R65.21 - Severe sepsis with septic shock Status: Acute Assessment and Plan: Patient presented with shortness of breath, hypoxia, cough productive of yellow sputum, right-sided chest and back pain. -when EMS arrived patient was hypoxic in the 60s, did receive Solu-Medrol, DuoNebs. -in the ER patient was hypotensive with systolics in the 50s -patient was adequately fluid-resuscitated in the ER as well as the ICU -wean Levophed braulio maintain MAP > 65 mmHg at all times for adequate end organ perfusion -CONTINUE ceftriaxone, azithromycin and vancomycin (03/15) -03/15: Blood cultures: Preliminary results are negative x2 -03/15: MRSA screen pending -03/15: Sputum cultures pending -lactic acid has normalized -will discontinue maintenance IV fluid (2) Community acquired pneumonia: Qualifiers: Laterality: right Lung location: upper lobe of lung Qualified Code(s): J18.9 - Pneumonia, unspecified organism Code(s): J18.9 - Pneumonia, unspecified organism Status: Acute Assessment and Plan: Likely source of septic shock is community-acquired pneumonia Chest x-ray this morning: Stable right upper lobe pneumonia.Right IJ line in place -03/15:check urine Legionella antigen, urine pneumococcal antigen and mycoplasma IgM PENDING -continue bronchodilators, Pulmicort -antibiotics as above 03/15: CT chest, abdomen, pelvis without contrast IMPRESSION: 1. Multifocal pneumonia, worst in the right upper lobe. 2. Mediastinal and right hilar lymphadenopathy, likely reactive. (3) Chronic obstructive pulmonary disease: Code(s): J44.9 - Chronic obstructive pulmonary disease, unspecified Status: Acute Assessment and Plan: Continue bronchodilators, Solu-Medrol for wheezing -patient on Vapotherm, alternating with BiPAP at night (4) Acute kidney injury: Code(s): N17.9 - Acute kidney failure, unspecified Status: Acute Assessment and Plan: Acute kidney injury with creatinine of 2.3 on admission (baseline creatinine 0.6 in April 2022) -had to hypotension, infection/pneumonia/septic shock, hypovolemia with decreased oral intake -patient has been adequately fluid-resuscitated, will give additional 500 mL IV fluid bolus in the ICU -continue maintain -03/15 renal ultrasound: Trace amount of bilateral perinephric fluid. Normal kidneys without hydronephrosis -urine sodium 25, patient not prerenal. No urine eosinophiles were seen. Mild elevation of CK, patient received adequate IV fluids -urine output has been adequate, creatinine trending down -will monitor urine output, renal function electrolytes (5) Hypokalemia: Code(s): E87.6 - Hypokalemia Status: Acute Assessment and Plan: Hypokalemia, replaced (6) Hyponatremia: Code(s): E87.1 - Hypo-osmolality and hyponatremia Status: Acute Assessment and Plan: Hyponatremia: Likely hypovolemic hyponatremia, patient on diuretics, prednisone, sertraline at home which all can cause hyponatremia -patient has received IV fluids -continue maintenance IV fluids with normal saline -sodium levels improving, continue to monitor (7) Tobacco abuse: Code(s): Z72.0 - Tobacco use Status: Acute Assessment and Plan: Have counseled patient for tobacco cessation -she stated that she is going to quit smoking Plan DVT prophylaxis: Lovenox Stress ulcer prophylaxis: Protonix Nutrition: Clear liquid diet Code Status: Full code Critical Care Time Spent: 34 minutes Due to a high probability of clinically significant, life threatening deterioration, the patient required my highest level of preparedness to intervene emergently and I personally spent this critical care time directly and personally managing the patient. This critical care time included obtaining a history; examining the patient; p
[2023-03-16] MEDS: ALPRAZolam (*CRX) 0.5 MG TABLET PO ×2 (13:25→17:06)
[2023-03-16] MEDS: SERTRALINE HCL 50 MG TABLET 100 MG PO (13:25)
[2023-03-16] MEDS: GABAPENTIN 300 MG CAPSULE PO (13:25)
[2023-03-16] MEDS: HYDROmorphone HCL INJ (*CRX) 1 MG/ML SYR 0.5 MG IV PUSH (13:26)
[2023-03-16] MEDS: PERFLUTREN LIPID MICROSPHERES 1.5 ML VIAL DILUTED TO 10 ML TOTAL VOLUME IV PUSH (14:20)
--- NOTE | 2023-03-16 14:54 | IVDEFINITY ---
Prior to administration of IV Definity the patient was educated on the risks and benefits of the imaging enhancing agent including potential adverse side effects. The patient verbalized understanding. Allergies were verified. No exclusion criteria were identified and at least one of the following inclusion criteria were met: 1) physician request, 2) patient technically difficult to image (per the [place] [employer] guidelines of two or more segments not discernable within the apical view), or 3) questionable left ventricular function. ?
[2023-03-16] MEDS: NICOTINE (*PBKC) 21 MG PATCH 1 PATCH TRANSDERM (20:30)
[2023-03-16] MEDS: ARTIFICIAL TEARS OPHTH SOLN 15 ML BOTTLE 1 DROP EACH EYE (20:32)
[2023-03-17] VITALS (27 sets, daily range): BP systolic 99–122; BP diastolic 58–98; PULSE 87–106; RESP 16–26; TEMP 36.2–36.8; O2SAT 94–100
[2023-03-17] MEDS: methylPREDNISolone SOD SUCC 40 MG VIAL IV PUSH ×2 (00:37→05:23)
[2023-03-17] MEDS: VANCOMYCIN 750 MG/NS 250 ML 750 MG/250 ML BAG 250 MG IVPB (00:37)
[2023-03-17] MEDS: IPRATROPIUM BR 0.02% INH SOLN 0.5 MG/2.5 ML VIAL INHALATION ×4 (01:39→19:57)
[2023-03-17] MEDS: LEVALBUTEROL NEB 1.25 MG/3 ML 0.63 MG INHALATION ×4 (01:39→19:57)
[2023-03-17] MEDS: HYDROmorphone HCL INJ (*CRX) 1 MG/ML SYR 0.5 MG IV PUSH (04:30)
[2023-03-17 04:33] LABS: Hematocrit 30.9 % (37.0-47.0); Hemoglobin 10.4 g/dL (12.0-15.0); Mean Corpuscular HGB Conc 33.7 g/dl (32-36); Mean Corpuscular Hemoglobin 33.2 pg (26-34); Mean Corpuscular Volume 98.7 fl (80-100); Mean Platelet Volume 9.9 fl (7.4-10.4); Platelet Count Result 183 k/mm3 (150-375); Red Blood Count 3.13 M/mm3 (4.2-5.4); Red Cell Distribution Width 13.2 % (11.5-14.5); White Blood Count 17.9 K/mm3 (4.5-10.0)
[2023-03-17 04:42] LABS: Alanine Aminotransferase 63 U/L (6-35); Albumin Level 2.8 g/dL (3.5-5.1); Alkaline Phosphatase 88 U/L (38-126); Anion Gap 7 mmol/L (8-16); Aspartate Amino Transferase 54 U/L (14-36); Bilirubin,Total 0.3 mg/dL (0.2-1.3); Blood Urea Nitrogen 25 mg/dL (7-17); Calcium 7.5 mg/dL (8.4-10.2); Carbon Dioxide 24 mmol/L (22-30); Chloride 104 mmol/L (98-107); Estimated CRCL calculation 37 ml/min; Estimated Glomerular Filt Rate 56; Glucose 145 mg/dL (65-110); Lactic Acid Reflex 1.6 mmol/L (0.7-2.0); Magnesium 1.8 mg/dL (1.6-2.3); Phosphorus 3.9 mg/dL (2.5-4.5); Potassium 3.4 mmol/L (3.4-5.0); Sodium 135 mmol/L (137-145)
[2023-03-17 05:06] LABS: Platelet Estimate Adequate (Adequate); Total Cells Counted 100
[2023-03-17 05:07] LABS: Band Neutrophils Percent 13 % (0-6); Lymphocytes Absolute Manual 0.17 K/mm3 (1.1-4.5); Lymphocytes Percent Manual 1 % (18-44); Monocytes Absolute Manual 0.53 K/mm3 (0.1-0.90); Monocytes Percent Manual 3 % (3-9); Neutrophils Absolute Manual 17.18 K/mm3 (1.7-7.2); Neutrophils Percent Manual 83 % (46-73)
[2023-03-17 05:08] LABS: Anisocytosis 1+ (NORMAL); Platelet Clumps Present; Schistocytes Rare (NORMAL)
[2023-03-17] MEDS: CENTRAL LINE FLUSH 10 ML IV PUSH ×3 (05:23→21:47)
[2023-03-17] MEDS: BUDESONIDE RESPULE NEB 0.5 MG/2 ML AMP INHALATION ×2 (07:57→19:57)
[2023-03-17] MEDS: ARTIFICIAL TEARS OPHTH SOLN 15 ML BOTTLE 1 DROP EACH EYE (08:26)
[2023-03-17] MEDS: KCL 40 MEQ/WATER 100 ML 100 ML 25 ML IVPB (08:26)
[2023-03-17] MEDS: ALPRAZolam (*CRX) 0.5 MG TABLET PO ×2 (08:26→16:59)
[2023-03-17] MEDS: PANTOPRAZOLE SODIUM IV 40 MG VIAL IV PUSH (08:26)
[2023-03-17] MEDS: SERTRALINE HCL 50 MG TABLET 100 MG PO (08:26)
[2023-03-17] MEDS: GABAPENTIN 300 MG CAPSULE PO ×2 (08:26→16:59)
[2023-03-17] MEDS: NICOTINE (*PBKC) 21 MG PATCH 1 PATCH TRANSDERM (08:26)
[2023-03-17] MEDS: ENOXAPARIN 40 MG/0.4 ML SYRINGE SUB-Q (08:26)
[2023-03-17] MEDS: guaiFENesin/CODEINE (*CRX) 200/20 MG 10 ML SYRUP PO ×2 (08:26→21:48)
[2023-03-17] MEDS: cefTRIAXone 2 GM/NS 100 ML 2 GM/100 ML BAG IVPB (08:27)
--- NOTE | 2023-03-17 08:32 | WPDINTPN ---
Progress Note: A&P Assessment and Plan (1) Septic shock: Code(s): A41.9 - Sepsis, unspecified organism; R65.21 - Severe sepsis with septic shock Status: Acute Assessment and Plan: Patient presented with shortness of breath, hypoxia, cough productive of yellow sputum, right-sided chest and back pain. -when EMS arrived patient was hypoxic in the 60s, did receive Solu-Medrol, DuoNebs. -in the ER patient was hypotensive with systolics in the 50s -patient was adequately fluid-resuscitated in the ER as well as the ICU -OFF Levophed -CONTINUE ceftriaxone, azithromycin and vancomycin (03/15) -03/15: Blood cultures: Preliminary results are negative x2 -03/15: MRSA screen -not isolate -03/15: Sputum cultures pending -lactic acid has normalized -tolerating p.o. (2) Community acquired pneumonia: Qualifiers: Laterality: right Lung location: upper lobe of lung Qualified Code(s): J18.9 - Pneumonia, unspecified organism Code(s): J18.9 - Pneumonia, unspecified organism Status: Acute Assessment and Plan: Likely source of septic shock is community-acquired pneumonia Chest x-ray this morning: Stable right upper lobe pneumonia.Right IJ line in place -03/15:check urine Legionella antigen, urine pneumococcal antigen and mycoplasma IgM PENDING -continue bronchodilators, Pulmicort -antibiotics as above 03/15: CT chest, abdomen, pelvis without contrast IMPRESSION: 1. Multifocal pneumonia, worst in the right upper lobe. 2. Mediastinal and right hilar lymphadenopathy, likely reactive. (3) Chronic obstructive pulmonary disease: Code(s): J44.9 - Chronic obstructive pulmonary disease, unspecified Status: Acute Assessment and Plan: Continue bronchodilators, -wean Solu-Medrol -patient on high-flow oxygen, alternating with Vapotherm and BiPAP (4) Acute kidney injury: Code(s): N17.9 - Acute kidney failure, unspecified Status: Acute Assessment and Plan: Acute kidney injury with creatinine of 2.3 on admission (baseline creatinine 0.6 in April 2022) -had to hypotension, infection/pneumonia/septic shock, hypovolemia with decreased oral intake -patient received adequate IV fluids in the ER and ICU -03/15 renal ultrasound: Trace amount of bilateral perinephric fluid. Normal kidneys without hydronephrosis -urine sodium 25, patient not prerenal. No urine eosinophiles were seen. Mild elevation of CK, patient received adequate IV fluids -urine output has been adequate, creatinine has normalized -will monitor urine output, renal function electrolytes (5) Hypokalemia: Code(s): E87.6 - Hypokalemia Status: Acute Assessment and Plan: Hypokalemia, will replace potassium (6) Hyponatremia: Code(s): E87.1 - Hypo-osmolality and hyponatremia Status: Acute Assessment and Plan: Hyponatremia: Likely hypovolemic hyponatremia, patient on diuretics, prednisone, sertraline at home which all can cause hyponatremia -patient has received IV fluids -continue maintenance IV fluids with normal saline -sodium levels improving, continue to monitor (7) Tobacco abuse: Code(s): Z72.0 - Tobacco use Status: Acute Assessment and Plan: Have counseled patient for tobacco cessation -she stated that she is going to quit smoking Plan DVT prophylaxis: Lovenox Stress ulcer prophylaxis: Protonix Nutrition: Regular diet Code Status: Full code Critical Care Time Spent: 32 minutes Due to a high probability of clinically significant, life threatening deterioration, the patient required my highest level of preparedness to intervene emergently and I personally spent this critical care time directly and personally managing the patient. This critical care time included obtaining a history; examining the patient; pulse oximetry; ordering and review of studies; arranging urgent treatment with development of a management plan; evaluation of patient's res
[2023-03-17] MEDS: AZITHROMYCIN 500 MG/NS 250 ML 500 MG/250 ML BAG 250 MG IVPB (09:09)
--- NOTE | 2023-03-17 13:51 | PM.IMPN ---
Progress Note: A&P Assessment and Plan (1) Septic shock: Code(s): A41.9 - Sepsis, unspecified organism; R65.21 - Severe sepsis with septic shock Status: Acute Assessment and Plan: Patient presented with shortness of breath, hypoxia, cough productive of yellow sputum, right-sided chest and back pain. -when EMS arrived patient was hypoxic in the 60s, did receive Solu-Medrol, DuoNebs. -in the ER patient was hypotensive with systolics in the 50s -patient was adequately fluid-resuscitated in the ER as well as the ICU -OFF Levophed -CONTINUE ceftriaxone, azithromycin and vancomycin (03/15) -03/15: Blood cultures: Preliminary results are negative x2 -03/15: MRSA screen -not isolate -03/15: Sputum cultures pending -lactic acid has normalized -tolerating p.o. (2) Community acquired pneumonia: Qualifiers: Laterality: right Lung location: upper lobe of lung Qualified Code(s): J18.9 - Pneumonia, unspecified organism Code(s): J18.9 - Pneumonia, unspecified organism Status: Acute Assessment and Plan: Likely source of septic shock is community-acquired pneumonia Chest x-ray this morning: Stable right upper lobe pneumonia.Right IJ line in place -03/15:check urine Legionella antigen, urine pneumococcal antigen and mycoplasma IgM PENDING -continue bronchodilators, Pulmicort -antibiotics as above 03/15: CT chest, abdomen, pelvis without contrast IMPRESSION: 1. Multifocal pneumonia, worst in the right upper lobe. 2. Mediastinal and right hilar lymphadenopathy, likely reactive. (3) Chronic obstructive pulmonary disease: Code(s): J44.9 - Chronic obstructive pulmonary disease, unspecified Status: Acute Assessment and Plan: Continue bronchodilators, -wean Solu-Medrol -patient on high-flow oxygen, alternating with Vapotherm and BiPAP (4) Acute kidney injury: Code(s): N17.9 - Acute kidney failure, unspecified Status: Acute Assessment and Plan: Acute kidney injury with creatinine of 2.3 on admission (baseline creatinine 0.6 in April 2022) -had to hypotension, infection/pneumonia/septic shock, hypovolemia with decreased oral intake -patient received adequate IV fluids in the ER and ICU -03/15 renal ultrasound: Trace amount of bilateral perinephric fluid. Normal kidneys without hydronephrosis -urine sodium 25, patient not prerenal. No urine eosinophiles were seen. Mild elevation of CK, patient received adequate IV fluids -urine output has been adequate, creatinine has normalized -will monitor urine output, renal function electrolytes (5) Hypokalemia: Code(s): E87.6 - Hypokalemia Status: Acute Assessment and Plan: Hypokalemia, will replace potassium (6) Hyponatremia: Code(s): E87.1 - Hypo-osmolality and hyponatremia Status: Acute Assessment and Plan: Hyponatremia: Likely hypovolemic hyponatremia, patient on diuretics, prednisone, sertraline at home which all can cause hyponatremia -patient has received IV fluids -continue maintenance IV fluids with normal saline -sodium levels improving, continue to monitor (7) Tobacco abuse: Code(s): Z72.0 - Tobacco use Status: Acute Assessment and Plan: Have counseled patient for tobacco cessation -she stated that she is going to quit smoking Plan DVT prophylaxis: Lovenox Stress ulcer prophylaxis: Protonix Nutrition: Regular diet Code Status: Full code Subjective Date/time seen: 03/17/23 13:51 Interval history: Patient presented with shortness of breath nonproductive cough intermittent right-sided chest pain lightheadedness and hypoxia. She has been off Levophed since last night. Uses Vapotherm. Review of Systems Review of Systems: All systems reviewed & are unremarkable except as noted in HPI and below Exam Narrative: General: Pleasant female on high-flow nasal cannula, in no acute distress HEENT:? Pupils equal and reactive, s
[2023-03-17 14:31] LABS: Pneumococcal Antigen Urine Not Detected (Not Detected)
[2023-03-17] MEDS: methylPREDNISolone SOD SUCC 40 MG VIAL 20 MG IV PUSH (17:02)
--- NOTE | 2023-03-17 21:30 | PC.NURSE ---
This patient, Margaret Hamilton, was transferred to [facility] on 03/17/23 at 2130. Personal belongings sent with patient. Report given to RUPERTO Blake. Appropriate documentation sent with patient.
--- NOTE | 2023-03-17 23:04 | PC.NURSE ---
This patient, Margaret Hamilton, was received from ICU-08 on 03/17/23 at 2134. Patient/family oriented to unit policies and routines
[2023-03-18] VITALS (24 sets, daily range): BP systolic 109–125; BP diastolic 65–90; PULSE 60–108; RESP 18–22; TEMP 36.2–36.6; O2SAT 93–100
[2023-03-18] MEDS: IPRATROPIUM BR 0.02% INH SOLN 0.5 MG/2.5 ML VIAL INHALATION ×4 (01:44→20:38)
[2023-03-18] MEDS: LEVALBUTEROL NEB 1.25 MG/3 ML 0.63 MG INHALATION ×4 (01:44→20:38)
[2023-03-18 03:02] LABS: Legionella pneumophila Ag Ur Not Detected (Not Detected)
[2023-03-18] MEDS: CENTRAL LINE FLUSH 20 ML IV PUSH (03:58)
[2023-03-18] MEDS: methylPREDNISolone SOD SUCC 40 MG VIAL 20 MG IV PUSH ×2 (04:06→17:22)
[2023-03-18] MEDS: CENTRAL LINE FLUSH 10 ML IV PUSH ×4 (04:10→20:22)
[2023-03-18 04:22] LABS: Basophils Percent Auto 0.2 % (0.2-1.2); Eosinophils Percent Auto 0.2 % (0-4.4); Hematocrit 31.5 % (37.0-47.0); Hemoglobin 10.3 g/dL (12.0-15.0); Immature Granulocyte Percent A 0.5 % (0-0.5); Lymphocytes Absolute Auto 0.37 K/mm3 (0.9-3.2); Mean Corpuscular HGB Conc 32.7 g/dl (32-36); Mean Corpuscular Hemoglobin 32.5 pg (26-34); Mean Corpuscular Volume 99.4 fl (80-100); Mean Platelet Volume 9.8 fl (7.4-10.4); Monocytes Percent Auto 5.3 % (2.6-8.5); Neutrophils Absolute Auto 16.9 K/mm3 (1.3-6.7); Neutrophils Percent Auto 91.8 % (45.5-73.1); Platelet Count Result 187 k/mm3 (150-375); Red Blood Count 3.17 M/mm3 (4.2-5.4); Red Cell Distribution Width 13.1 % (11.5-14.5); White Blood Count 18.4 K/mm3 (4.5-10.0)
[2023-03-18 04:39] LABS: Alanine Aminotransferase 51 U/L (6-35); Albumin Level 2.7 g/dL (3.5-5.1); Alkaline Phosphatase 97 U/L (38-126); Anion Gap 2 mmol/L (8-16); Aspartate Amino Transferase 29 U/L (14-36); Bilirubin,Total 0.3 mg/dL (0.2-1.3); Blood Urea Nitrogen 22 mg/dL (7-17); Calcium 7.7 mg/dL (8.4-10.2); Carbon Dioxide 27 mmol/L (22-30); Chloride 105 mmol/L (98-107); Estimated CRCL calculation 52 ml/min; Estimated Glomerular Filt Rate > 60; Glucose 222 mg/dL (65-110); Magnesium 1.7 mg/dL (1.6-2.3); Phosphorus 2.6 mg/dL (2.5-4.5); Potassium 3.2 mmol/L (3.4-5.0); Sodium 134 mmol/L (137-145)
[2023-03-18] MEDS: ENOXAPARIN 40 MG/0.4 ML SYRINGE SUB-Q (08:03)
[2023-03-18] MEDS: NICOTINE (*PBKC) 21 MG PATCH 1 PATCH TRANSDERM (08:03)
[2023-03-18] MEDS: PANTOPRAZOLE SODIUM IV 40 MG VIAL IV PUSH (08:03)
[2023-03-18] MEDS: GABAPENTIN 300 MG CAPSULE PO ×2 (08:04→17:22)
[2023-03-18] MEDS: ALPRAZolam (*CRX) 0.5 MG TABLET PO ×3 (08:04→17:22)
[2023-03-18] MEDS: SERTRALINE HCL 50 MG TABLET 100 MG PO (08:04)
[2023-03-18] MEDS: cefTRIAXone 2 GM/NS 100 ML 2 GM/100 ML BAG IVPB (08:04)
[2023-03-18] MEDS: BUDESONIDE RESPULE NEB 0.5 MG/2 ML AMP INHALATION ×2 (09:20→20:38)
[2023-03-18] MEDS: AZITHROMYCIN 500 MG/NS 250 ML 500 MG/250 ML BAG 250 MG IVPB (10:11)
[2023-03-18] MEDS: POTASSIUM CHLORIDE 20 MEQ ER TABLET 40 MEQ PO (10:15)
[2023-03-18] MEDS: guaiFENesin/CODEINE (*CRX) 200/20 MG 10 ML SYRUP PO (10:15)
--- NOTE | 2023-03-18 12:39 | PM.IMPN ---
Progress Note: A&P Assessment and Plan (1) Septic shock: Code(s): A41.9 - Sepsis, unspecified organism; R65.21 - Severe sepsis with septic shock Status: Acute Assessment and Plan: Patient presented with shortness of breath, hypoxia, cough productive of yellow sputum, right-sided chest and back pain. -when EMS arrived patient was hypoxic in the 60s, did receive Solu-Medrol, DuoNebs. -in the ER patient was hypotensive with systolics in the 50s -patient was adequately fluid-resuscitated in the ER as well as the ICU -OFF Levophed -CONTINUE ceftriaxone, azithromycin and vancomycin (03/15) -03/15: Blood cultures: Preliminary results are negative x2 -03/15: MRSA screen -not isolate -03/15: Sputum cultures preliminary with growth normal oropharyngeal lai -lactic acid has normalized -tolerating p.o. Chest x-ray with improving right upper lobe consolidation. Leukocytosis persisted however could be related to the steroid. Hypoxia improving MRSA negative of vancomycin. Continue on ceftriaxone and azithromycin. Finished azithromycin course 03/19 (2) Community acquired pneumonia: Qualifiers: Laterality: right Lung location: upper lobe of lung Qualified Code(s): J18.9 - Pneumonia, unspecified organism Code(s): J18.9 - Pneumonia, unspecified organism Status: Acute Assessment and Plan: Likely source of septic shock is community-acquired pneumonia Chest x-ray this morning: Stable right upper lobe pneumonia.Right IJ line in place -03/15:check urine Legionella antigen, urine pneumococcal antigen and mycoplasma IgM PENDING -continue bronchodilators, Pulmicort -antibiotics as above 03/15: CT chest, abdomen, pelvis without contrast IMPRESSION: 1. Multifocal pneumonia, worst in the right upper lobe. 2. Mediastinal and right hilar lymphadenopathy, likely reactive. See above Chest x-ray with improving right upper lobe infiltrate (3) Chronic obstructive pulmonary disease: Code(s): J44.9 - Chronic obstructive pulmonary disease, unspecified Status: Acute Assessment and Plan: Continue bronchodilators, -wean Solu-Medrol -patient on high-flow oxygen, alternating with Vapotherm and BiPAP Wean oxygen as tolerated Will on BiPAP at night (4) Acute kidney injury: Code(s): N17.9 - Acute kidney failure, unspecified Status: Acute Assessment and Plan: Acute kidney injury with creatinine of 2.3 on admission (baseline creatinine 0.6 in April 2022) -had to hypotension, infection/pneumonia/septic shock, hypovolemia with decreased oral intake -patient received adequate IV fluids in the ER and ICU -03/15 renal ultrasound: Trace amount of bilateral perinephric fluid. Normal kidneys without hydronephrosis -urine sodium 25, patient not prerenal. No urine eosinophiles were seen. Mild elevation of CK, patient received adequate IV fluids -urine output has been adequate, creatinine has normalized -will monitor urine output, renal function electrolytes Will remove Monson catheter today If blood pressure remains stable will remove right IJ tomorrow (5) Hypokalemia: Code(s): E87.6 - Hypokalemia Status: Acute Assessment and Plan: Hypokalemia, will replace potassium (6) Hyponatremia: Code(s): E87.1 - Hypo-osmolality and hyponatremia Status: Acute Assessment and Plan: Hyponatremia: Likely hypovolemic hyponatremia, patient on diuretics, prednisone, sertraline at home which all can cause hyponatremia -patient has received IV fluids -continue maintenance IV fluids with normal saline -sodium levels improving, continue to monitor (7) Tobacco abuse: Code(s): Z72.0 - Tobacco use Status: Acute Assessment and Plan: Have counseled patient for tobacco cessation -she stated that she is going to quit smoking Plan DVT prophylaxis: Lovenox Stress ulcer prophylaxis: Protonix Nutrition: Regular diet Code Status: Full code Time
[2023-03-19] VITALS (27 sets, daily range): BP systolic 122–147; BP diastolic 68–89; PULSE 87–109; RESP 17–22; TEMP 35.8–36.4; O2SAT 84–100
[2023-03-19] MEDS: IPRATROPIUM BR 0.02% INH SOLN 0.5 MG/2.5 ML VIAL INHALATION ×4 (02:10→20:31)
[2023-03-19] MEDS: LEVALBUTEROL NEB 1.25 MG/3 ML 0.63 MG INHALATION ×4 (02:10→20:30)
[2023-03-19] MEDS: methylPREDNISolone SOD SUCC 40 MG VIAL 20 MG IV PUSH (04:21)
[2023-03-19] MEDS: CENTRAL LINE FLUSH 10 ML IV PUSH (04:21)
[2023-03-19] MEDS: CENTRAL LINE FLUSH 20 ML IV PUSH (04:21)
[2023-03-19 04:48] LABS: Basophils Percent Auto 0.3 % (0.2-1.2); Eosinophils Percent Auto 0.1 % (0-4.4); Hematocrit 31.2 % (37.0-47.0); Hemoglobin 10.2 g/dL (12.0-15.0); Immature Granulocyte Absolute 0.15 K/mm3 (0.00-0.031); Immature Granulocyte Percent A 1.3 % (0-0.5); Lymphocytes Absolute Auto 0.73 K/mm3 (0.9-3.2); Lymphocytes Percent Auto 6.1 % (18.3-44.2); Mean Corpuscular HGB Conc 32.7 g/dl (32-36); Mean Corpuscular Hemoglobin 32.9 pg (26-34); Mean Corpuscular Volume 100.6 fl (80-100); Mean Platelet Volume 9.6 fl (7.4-10.4); Monocytes Absolute Auto 1.3 K/mm3 (0.1-0.6); Monocytes Percent Auto 10.8 % (2.6-8.5); Neutrophils Absolute Auto 9.7 K/mm3 (1.3-6.7); Neutrophils Percent Auto 81.4 % (45.5-73.1); Platelet Count Result 201 k/mm3 (150-375); Red Cell Distribution Width 13.2 % (11.5-14.5); White Blood Count 11.9 K/mm3 (4.5-10.0)
[2023-03-19 04:59] LABS: Alanine Aminotransferase 43 U/L (6-35); Albumin Level 2.8 g/dL (3.5-5.1); Alkaline Phosphatase 89 U/L (38-126); Anion Gap 3 mmol/L (8-16); Aspartate Amino Transferase 21 U/L (14-36); Bilirubin,Total 0.2 mg/dL (0.2-1.3); Blood Urea Nitrogen 19 mg/dL (7-17); Calcium 7.9 mg/dL (8.4-10.2); Carbon Dioxide 27 mmol/L (22-30); Chloride 108 mmol/L (98-107); Estimated CRCL calculation 60 ml/min; Estimated Glomerular Filt Rate > 60; Glucose 196 mg/dL (65-110); Magnesium 1.7 mg/dL (1.6-2.3); Phosphorus 2.3 mg/dL (2.5-4.5); Potassium 3.7 mmol/L (3.4-5.0); Sodium 138 mmol/L (137-145)
[2023-03-19] MEDS: BUDESONIDE RESPULE NEB 0.5 MG/2 ML AMP INHALATION ×2 (08:55→20:31)
[2023-03-19] MEDS: ENOXAPARIN 40 MG/0.4 ML SYRINGE SUB-Q (09:31)
[2023-03-19] MEDS: GABAPENTIN 300 MG CAPSULE PO ×2 (09:31→17:43)
[2023-03-19] MEDS: PANTOPRAZOLE SODIUM IV 40 MG VIAL IV PUSH (09:31)
[2023-03-19] MEDS: SERTRALINE HCL 50 MG TABLET 100 MG PO (09:32)
[2023-03-19] MEDS: NICOTINE (*PBKC) 21 MG PATCH 1 PATCH TRANSDERM (09:32)
[2023-03-19] MEDS: cefTRIAXone 2 GM/NS 100 ML 2 GM/100 ML BAG IVPB (09:32)
[2023-03-19] MEDS: ALPRAZolam (*CRX) 0.5 MG TABLET PO ×2 (09:32→17:43)
--- NOTE | 2023-03-19 09:32 | PCPTNOTE ---
Nursing present, is passing medication and about to start IV antibiotics. Requests therapy wait until after this to proceed. Will check back with patient as able today.
[2023-03-19] MEDS: AZITHROMYCIN 500 MG/NS 250 ML 500 MG/250 ML BAG 250 MG IVPB (09:46)
[2023-03-19] MEDS: guaiFENesin/CODEINE (*CRX) 200/20 MG 10 ML SYRUP PO ×2 (09:46→19:01)
[2023-03-19] MEDS: ACETAMINOPHEN 325 MG TABLET 650 MG PO (09:46)
--- NOTE | 2023-03-19 13:13 | PM.IMPN ---
Progress Note: A&P Assessment and Plan (1) Septic shock: Code(s): A41.9 - Sepsis, unspecified organism; R65.21 - Severe sepsis with septic shock Status: Acute Assessment and Plan: Patient presented with shortness of breath, hypoxia, cough productive of yellow sputum, right-sided chest and back pain. -when EMS arrived patient was hypoxic in the 60s, did receive Solu-Medrol, DuoNebs. -in the ER patient was hypotensive with systolics in the 50s -patient was adequately fluid-resuscitated in the ER as well as the ICU -OFF Levophed -CONTINUE ceftriaxone, azithromycin and vancomycin (03/15) -03/15: Blood cultures: Preliminary results are negative x2 -03/15: MRSA screen -not isolate -03/15: Sputum cultures preliminary with growth normal oropharyngeal lai -lactic acid has normalized -tolerating p.o. Chest x-ray with improving right upper lobe consolidation. Leukocytosis persisted however could be related to the steroid. Hypoxia improving MRSA negative of vancomycin. Continue on ceftriaxone and azithromycin. Finishes azithromycin course 03/19 Will switch ceftriaxone to oral cefdinir (2) Community acquired pneumonia: Qualifiers: Laterality: right Lung location: upper lobe of lung Qualified Code(s): J18.9 - Pneumonia, unspecified organism Code(s): J18.9 - Pneumonia, unspecified organism Status: Acute Assessment and Plan: Likely source of septic shock is community-acquired pneumonia Chest x-ray this morning: Stable right upper lobe pneumonia.Right IJ line in place -03/15:check urine Legionella antigen, urine pneumococcal antigen and mycoplasma IgM PENDING -continue bronchodilators, Pulmicort -antibiotics as above 03/15: CT chest, abdomen, pelvis without contrast IMPRESSION: 1. Multifocal pneumonia, worst in the right upper lobe. 2. Mediastinal and right hilar lymphadenopathy, likely reactive. See above Chest x-ray with improving right upper lobe infiltrate (3) Chronic obstructive pulmonary disease: Code(s): J44.9 - Chronic obstructive pulmonary disease, unspecified Status: Acute Assessment and Plan: Continue bronchodilators, -wean Solu-Medrol -patient on high-flow oxygen, alternating with Vapotherm and BiPAP Wean oxygen as tolerated Will on BiPAP at night Stop BiPAP tonight (4) Acute kidney injury: Code(s): N17.9 - Acute kidney failure, unspecified Status: Acute Assessment and Plan: Acute kidney injury with creatinine of 2.3 on admission (baseline creatinine 0.6 in April 2022) -had to hypotension, infection/pneumonia/septic shock, hypovolemia with decreased oral intake -patient received adequate IV fluids in the ER and ICU -03/15 renal ultrasound: Trace amount of bilateral perinephric fluid. Normal kidneys without hydronephrosis -urine sodium 25, patient not prerenal. No urine eosinophiles were seen. Mild elevation of CK, patient received adequate IV fluids -urine output has been adequate, creatinine has normalized -will monitor urine output, renal function electrolytes Will remove Monson catheter today Remove right IC (5) Hypokalemia: Code(s): E87.6 - Hypokalemia Status: Acute Assessment and Plan: Hypokalemia, will replace potassium (6) Hyponatremia: Code(s): E87.1 - Hypo-osmolality and hyponatremia Status: Acute Assessment and Plan: Hyponatremia: Likely hypovolemic hyponatremia, patient on diuretics, prednisone, sertraline at home which all can cause hyponatremia -patient has received IV fluids -continue maintenance IV fluids with normal saline -sodium levels improving, continue to monitor (7) Tobacco abuse: Code(s): Z72.0 - Tobacco use Status: Acute Assessment and Plan: Have counseled patient for tobacco cessation -she stated that she is going to quit smoking Plan DVT prophylaxis: Lovenox Stress ulcer prophylaxis: Protonix Nutrition: Regular diet Code Status: Rolly
[2023-03-19] MEDS: CEFDINIR 300 MG CAPSULE PO (20:12)
[2023-03-20] VITALS (25 sets, daily range): BP systolic 99–140; BP diastolic 54–84; PULSE 94–106; RESP 17–20; TEMP 35.6–37; O2SAT 89–100
[2023-03-20] MEDS: IPRATROPIUM BR 0.02% INH SOLN 0.5 MG/2.5 ML VIAL INHALATION ×4 (02:05→19:51)
[2023-03-20] MEDS: LEVALBUTEROL NEB 1.25 MG/3 ML 0.63 MG INHALATION ×4 (02:05→19:50)
[2023-03-20 05:04] LABS: Basophils Percent Auto 0.4 % (0.2-1.2); Eosinophils Absolute Auto 0.1 K/mm3 (0-0.3); Eosinophils Percent Auto 0.5 % (0-4.4); Hematocrit 33.4 % (37.0-47.0); Hemoglobin 10.9 g/dL (12.0-15.0); Immature Granulocyte Absolute 0.21 K/mm3 (0.00-0.031); Immature Granulocyte Percent A 1.9 % (0-0.5); Lymphocytes Absolute Auto 1.32 K/mm3 (0.9-3.2); Lymphocytes Percent Auto 11.9 % (18.3-44.2); Mean Corpuscular HGB Conc 32.6 g/dl (32-36); Mean Corpuscular Hemoglobin 32.8 pg (26-34); Mean Corpuscular Volume 100.6 fl (80-100); Mean Platelet Volume 9.3 fl (7.4-10.4); Monocytes Absolute Auto 1.2 K/mm3 (0.1-0.6); Monocytes Percent Auto 10.5 % (2.6-8.5); Neutrophils Absolute Auto 8.3 K/mm3 (1.3-6.7); Neutrophils Percent Auto 74.8 % (45.5-73.1); Platelet Count Result 239 k/mm3 (150-375); Red Blood Count 3.32 M/mm3 (4.2-5.4); Red Cell Distribution Width 13.4 % (11.5-14.5); White Blood Count 11.1 K/mm3 (4.5-10.0)
[2023-03-20 05:20] LABS: Alanine Aminotransferase 36 U/L (6-35); Albumin Level 2.9 g/dL (3.5-5.1); Alkaline Phosphatase 85 U/L (38-126); Anion Gap 4 mmol/L (8-16); Aspartate Amino Transferase 19 U/L (14-36); Bilirubin,Total 0.3 mg/dL (0.2-1.3); Blood Urea Nitrogen 13 mg/dL (7-17); Calcium 7.8 mg/dL (8.4-10.2); Carbon Dioxide 28 mmol/L (22-30); Chloride 108 mmol/L (98-107); Estimated CRCL calculation 71 ml/min; Estimated Glomerular Filt Rate > 60; Glucose 114 mg/dL (65-110); Magnesium 1.5 mg/dL (1.6-2.3); Phosphorus 2.8 mg/dL (2.5-4.5); Sodium 140 mmol/L (137-145)
[2023-03-20] MEDS: PANTOPRAZOLE SODIUM IV 40 MG VIAL IV PUSH (08:52)
[2023-03-20] MEDS: guaiFENesin/CODEINE (*CRX) 200/20 MG 10 ML SYRUP PO ×2 (08:52→17:41)
[2023-03-20] MEDS: CEFDINIR 300 MG CAPSULE PO ×2 (08:52→20:11)
[2023-03-20] MEDS: ALPRAZolam (*CRX) 0.5 MG TABLET PO ×3 (08:53→17:41)
[2023-03-20] MEDS: SERTRALINE HCL 50 MG TABLET 100 MG PO (08:53)
[2023-03-20] MEDS: NICOTINE (*PBKC) 21 MG PATCH 1 PATCH TRANSDERM (08:53)
[2023-03-20] MEDS: ENOXAPARIN 40 MG/0.4 ML SYRINGE SUB-Q (08:53)
[2023-03-20] MEDS: GABAPENTIN 300 MG CAPSULE PO ×2 (08:53→17:41)
[2023-03-20] MEDS: ACETAMINOPHEN 325 MG TABLET 650 MG PO (08:53)
[2023-03-20] MEDS: BUDESONIDE RESPULE NEB 0.5 MG/2 ML AMP INHALATION ×2 (09:08→19:51)
[2023-03-20] MEDS: POTASSIUM CHLORIDE 20 MEQ PACKET (FOR LIQUID) 40 MEQ PO (10:42)
[2023-03-20] MEDS: MAGNESIUM SULF 2 GM/WATER 50ML 2 GM/50 ML BAG IVPB (10:43)
[2023-03-20 14:06] LABS: Mycoplasma IgM Antibody Titer 282 U/mL (<770)
--- NOTE | 2023-03-20 15:58 | PC.NURSE ---
Patient oxygen saturation noted to be 87-88%. Patient assessment revealed patient to be sleeping.1 L nasal cannula initiated, oxygenation rebounded to 93%. Will continue to monitor.
--- NOTE | 2023-03-20 16:45 | PM.IMPN ---
Progress Note: A&P Assessment and Plan (1) Septic shock: Code(s): A41.9 - Sepsis, unspecified organism; R65.21 - Severe sepsis with septic shock Status: Acute Assessment and Plan: Patient presented with shortness of breath, hypoxia, cough productive of yellow sputum, right-sided chest and back pain. -when EMS arrived patient was hypoxic in the 60s, did receive Solu-Medrol, DuoNebs. -in the ER patient was hypotensive with systolics in the 50s -patient was adequately fluid-resuscitated in the ER as well as the ICU -OFF Levophed -CONTINUE ceftriaxone, azithromycin and vancomycin (03/15) -03/15: Blood cultures: Preliminary results are negative x2 -03/15: MRSA screen -not isolate -03/15: Sputum cultures preliminary with growth normal oropharyngeal lai -lactic acid has normalized -tolerating p.o. Chest x-ray with improving right upper lobe consolidation. Leukocytosis persisted however could be related to the steroid. Hypoxia improving MRSA negative of vancomycin. Continue on ceftriaxone and azithromycin. Finishes azithromycin course 03/19 Will switch ceftriaxone to oral cefdinir (2) Community acquired pneumonia: Qualifiers: Laterality: right Lung location: upper lobe of lung Qualified Code(s): J18.9 - Pneumonia, unspecified organism Code(s): J18.9 - Pneumonia, unspecified organism Status: Acute Assessment and Plan: Likely source of septic shock is community-acquired pneumonia Chest x-ray this morning: Stable right upper lobe pneumonia.Right IJ line in place -03/15:check urine Legionella antigen, urine pneumococcal antigen and mycoplasma IgM PENDING -continue bronchodilators, Pulmicort -antibiotics as above 03/15: CT chest, abdomen, pelvis without contrast IMPRESSION: 1. Multifocal pneumonia, worst in the right upper lobe. 2. Mediastinal and right hilar lymphadenopathy, likely reactive. See above Chest x-ray with improving right upper lobe infiltrate (3) Chronic obstructive pulmonary disease: Code(s): J44.9 - Chronic obstructive pulmonary disease, unspecified Status: Acute Assessment and Plan: Continue bronchodilators, -wean Solu-Medrol -patient on high-flow oxygen, alternating with Vapotherm and BiPAP Wean oxygen as tolerated Will on BiPAP at night Stop BiPAP tonight Will switch to oral prednisone today (4) Acute kidney injury: Code(s): N17.9 - Acute kidney failure, unspecified Status: Acute Assessment and Plan: Acute kidney injury with creatinine of 2.3 on admission (baseline creatinine 0.6 in April 2022) -had to hypotension, infection/pneumonia/septic shock, hypovolemia with decreased oral intake -patient received adequate IV fluids in the ER and ICU -03/15 renal ultrasound: Trace amount of bilateral perinephric fluid. Normal kidneys without hydronephrosis -urine sodium 25, patient not prerenal. No urine eosinophiles were seen. Mild elevation of CK, patient received adequate IV fluids -urine output has been adequate, creatinine has normalized -will monitor urine output, renal function electrolytes He will Monson catheter and right IJ (5) Hypokalemia: Code(s): E87.6 - Hypokalemia Status: Acute Assessment and Plan: Hypokalemia, will replace potassium (6) Hyponatremia: Code(s): E87.1 - Hypo-osmolality and hyponatremia Status: Acute Assessment and Plan: Hyponatremia: Likely hypovolemic hyponatremia, patient on diuretics, prednisone, sertraline at home which all can cause hyponatremia -patient has received IV fluids -continue maintenance IV fluids with normal saline -sodium levels improving, continue to monitor (7) Tobacco abuse: Code(s): Z72.0 - Tobacco use Status: Acute Assessment and Plan: Have counseled patient for tobacco cessation -she stated that she is going to quit smoking Plan DVT prophylaxis: Lovenox Stress ulcer prophylaxis: Protonix Nutrition: Regular d
[2023-03-20] MEDS: predniSONE 20 MG TABLET 40 MG PO (17:45)
[2023-03-20 19:06] LABS: Chloride Rand Ur <20 mmol/L (32-290); Creatinine Random Urine 74 mg/dL (20-275)
[2023-03-21] VITALS (27 sets, daily range): BP systolic 119–144; BP diastolic 66–80; PULSE 55–114; RESP 16–20; TEMP 35.9–36.6; O2SAT 86–99
[2023-03-21] MEDS: LEVALBUTEROL NEB 1.25 MG/3 ML 0.63 MG INHALATION ×4 (02:45→20:09)
[2023-03-21] MEDS: IPRATROPIUM BR 0.02% INH SOLN 0.5 MG/2.5 ML VIAL INHALATION ×4 (02:45→20:09)
[2023-03-21 04:58] LABS: Basophils Percent Auto 0.2 % (0.2-1.2); Hematocrit 36.9 % (37.0-47.0); Hemoglobin 12.3 g/dL (12.0-15.0); Immature Granulocyte Absolute 0.33 K/mm3 (0.00-0.031); Immature Granulocyte Percent A 2.4 % (0-0.5); Lymphocytes Absolute Auto 0.42 K/mm3 (0.9-3.2); Lymphocytes Percent Auto 3.1 % (18.3-44.2); Mean Corpuscular HGB Conc 33.3 g/dl (32-36); Mean Corpuscular Hemoglobin 32.5 pg (26-34); Mean Corpuscular Volume 97.6 fl (80-100); Mean Platelet Volume 9.5 fl (7.4-10.4); Monocytes Absolute Auto 0.5 K/mm3 (0.1-0.6); Monocytes Percent Auto 3.5 % (2.6-8.5); Neutrophils Absolute Auto 12.2 K/mm3 (1.3-6.7); Neutrophils Percent Auto 90.8 % (45.5-73.1); Platelet Count Result 285 k/mm3 (150-375); Red Blood Count 3.78 M/mm3 (4.2-5.4); Red Cell Distribution Width 13.2 % (11.5-14.5); White Blood Count 13.5 K/mm3 (4.5-10.0)
[2023-03-21 05:07] LABS: Alanine Aminotransferase 29 U/L (6-35); Albumin Level 2.8 g/dL (3.5-5.1); Alkaline Phosphatase 97 U/L (38-126); Anion Gap 6 mmol/L (8-16); Aspartate Amino Transferase 17 U/L (14-36); Bilirubin,Total 0.3 mg/dL (0.2-1.3); Blood Urea Nitrogen 13 mg/dL (7-17); Calcium 7.5 mg/dL (8.4-10.2); Carbon Dioxide 29 mmol/L (22-30); Chloride 101 mmol/L (98-107); Estimated CRCL calculation 71 ml/min; Estimated Glomerular Filt Rate > 60; Glucose 315 mg/dL (65-110); Magnesium 1.6 mg/dL (1.6-2.3); Phosphorus 3.5 mg/dL (2.5-4.5); Potassium 3.9 mmol/L (3.4-5.0); Sodium 136 mmol/L (137-145)
[2023-03-21] MEDS: BUDESONIDE RESPULE NEB 0.5 MG/2 ML AMP INHALATION ×2 (09:41→20:09)
[2023-03-21] MEDS: SERTRALINE HCL 50 MG TABLET 100 MG PO (10:21)
[2023-03-21] MEDS: ENOXAPARIN 40 MG/0.4 ML SYRINGE SUB-Q (10:22)
[2023-03-21] MEDS: PANTOPRAZOLE SODIUM IV 40 MG VIAL IV PUSH (10:22)
[2023-03-21] MEDS: NICOTINE (*PBKC) 21 MG PATCH 1 PATCH TRANSDERM (10:22)
[2023-03-21] MEDS: GABAPENTIN 300 MG CAPSULE PO ×2 (10:22→18:24)
[2023-03-21] MEDS: CEFDINIR 300 MG CAPSULE PO ×2 (10:22→20:52)
[2023-03-21] MEDS: ALPRAZolam (*CRX) 0.5 MG TABLET PO ×3 (10:22→18:24)
[2023-03-21] MEDS: predniSONE 20 MG TABLET 40 MG PO (10:23)
--- NOTE | 2023-03-21 14:38 | PM.IMPN ---
Progress Note: A&P Assessment and Plan (1) Septic shock: Code(s): A41.9 - Sepsis, unspecified organism; R65.21 - Severe sepsis with septic shock Status: Acute Assessment and Plan: Patient presented with shortness of breath, hypoxia, cough productive of yellow sputum, right-sided chest and back pain. -when EMS arrived patient was hypoxic in the 60s, did receive Solu-Medrol, DuoNebs. -in the ER patient was hypotensive with systolics in the 50s -patient was adequately fluid-resuscitated in the ER as well as the ICU -OFF Levophed -CONTINUE ceftriaxone, azithromycin and vancomycin (03/15) -03/15: Blood cultures: Preliminary results are negative x2 -03/15: MRSA screen -not isolate -03/15: Sputum cultures preliminary with growth normal oropharyngeal lai -lactic acid has normalized -tolerating p.o. Chest x-ray with improving right upper lobe consolidation. Leukocytosis persisted however could be related to the steroid. Hypoxia improving MRSA negative of vancomycin. Continue on ceftriaxone and azithromycin. Finishes azithromycin course 03/19 Will switch ceftriaxone to oral cefdinir (2) Community acquired pneumonia: Qualifiers: Laterality: right Lung location: upper lobe of lung Qualified Code(s): J18.9 - Pneumonia, unspecified organism Code(s): J18.9 - Pneumonia, unspecified organism Status: Acute Assessment and Plan: Likely source of septic shock is community-acquired pneumonia Chest x-ray this morning: Stable right upper lobe pneumonia.Right IJ line in place -03/15:check urine Legionella antigen, urine pneumococcal antigen and mycoplasma IgM PENDING -continue bronchodilators, Pulmicort -antibiotics as above 03/15: CT chest, abdomen, pelvis without contrast IMPRESSION: 1. Multifocal pneumonia, worst in the right upper lobe. 2. Mediastinal and right hilar lymphadenopathy, likely reactive. See above Chest x-ray with improving right upper lobe infiltrate Recheck chest x-ray today (3) Chronic obstructive pulmonary disease: Code(s): J44.9 - Chronic obstructive pulmonary disease, unspecified Status: Acute Assessment and Plan: Continue bronchodilators, -wean Solu-Medrol -patient on high-flow oxygen, alternating with Vapotherm and BiPAP Wean oxygen as tolerated Will on BiPAP at night Stop BiPAP tonight Will switch to oral prednisone today Worsening respiratory status today with increased wheezing will continue breathing treatment and steroid as ordered Recheck chest x-ray (4) Acute kidney injury: Code(s): N17.9 - Acute kidney failure, unspecified Status: Acute Assessment and Plan: Acute kidney injury with creatinine of 2.3 on admission (baseline creatinine 0.6 in April 2022) -had to hypotension, infection/pneumonia/septic shock, hypovolemia with decreased oral intake -patient received adequate IV fluids in the ER and ICU -03/15 renal ultrasound: Trace amount of bilateral perinephric fluid. Normal kidneys without hydronephrosis -urine sodium 25, patient not prerenal. No urine eosinophiles were seen. Mild elevation of CK, patient received adequate IV fluids -urine output has been adequate, creatinine has normalized -will monitor urine output, renal function electrolytes Removed Monson catheter and right IJ (5) Hypokalemia: Code(s): E87.6 - Hypokalemia Status: Acute Assessment and Plan: Hypokalemia, will replace potassium (6) Hyponatremia: Code(s): E87.1 - Hypo-osmolality and hyponatremia Status: Acute Assessment and Plan: Hyponatremia: Likely hypovolemic hyponatremia, patient on diuretics, prednisone, sertraline at home which all can cause hyponatremia -patient has received IV fluids -continue maintenance IV fluids with normal saline -sodium levels improving, continue to monitor (7) Tobacco abuse: Code(s): Z72.0 - Tobacco use Status: Acute Assessment and Plan: Have counseled lolis
--- NOTE | 2023-03-21 15:30 | HOMEO2EVAL ---
Evaluation was performed at [facility] Home Oxygen Evaluation RC: Home Oxygen (O2) Evaluation Start: 03/21/23 09:43 Freq: ONCE Status: Active Protocol: RPE Activity Type Activity Date Activity User E-sign Co-sign Detail Recorded Client Recorded Date Recorded By Document 03/21/23 14:30 SAURAV [email or web address] 03/21/23 15:30 SAURAV Document 03/21/23 14:35 SAURAV [email or web address] 03/21/23 15:30 SAURAV Document 03/21/23 14:36 SAURAV [email or web address] 03/21/23 15:30 SAURAV Document 03/21/23 14:37 SAURAV [email or web address] 03/21/23 15:30 SAURAV Document 03/21/23 14:45 SAURAV [email or web address] 03/21/23 15:30 SAURAV 03/21/23 03/21/23 03/21/23 14:30 14:35 14:36 Home O2 Evaluation [Oxygen] -Test Phase Resting Exercise Exercise -Oxygen Delivery Room Air Room Air Nasal Cannula -Oxygen Flow Rate (L/min) 1 [Pulse Oximetry] -Pulse Oximetry (90-100 %) 94 86 L 87 L [Pulse Rate] -Pulse Rate (60-100 beats/min) 100 114 H [Exercise] -Ambulation Distance (feet) 500 -Ambulation Distance (meters) 152.39 [Comments] -Home Oxygen Evaluation Comments [Charges] -Treatment Charges O2 Evaluation - Inpatient 03/21/23 03/21/23 14:37 14:45 Home O2 Evaluation [Oxygen] -Test Phase Exercise Resting -Oxygen Delivery Nasal Cannula Room Air -Oxygen Flow Rate (L/min) 2 [Pulse Oximetry] -Pulse Oximetry (90-100 %) 90 [Pulse Rate] -Pulse Rate (60-100 beats/min) [Exercise] -Ambulation Distance (feet) -Ambulation Distance (meters) [Comments] -Home Oxygen Evaluation Comments PATIENT REQUIRES 2 L HOME O2 WITH [facility] [Charges] -Treatment Charges
--- NOTE | 2023-03-21 15:57 | PCRCNOTE ---
HOME O2 EVAL COMPLETED, PATIENT REQUIRES 2 LITERS WITH [facility]. ROOM AIR AT REST. SET UP WITH [facility]. THEY WILL BRING IN A TANK TO PATIENTS ROOM PRIOR TO DISCHARGE FOR TRANSPORT HOME.
[2023-03-21] MEDS: ACYCLOVIR 400 MG TABLET PO (22:43)
[2023-03-21] MEDS: NYSTATIN 100,000 UNITS/ML SUSP 5 ML ORAL.SUSP PO (22:43)
[2023-03-21] MEDS: ACYCLOVIR 5% OINTMENT 15 GM TUBE 1 APPLIC TOPICAL (22:50)
[2023-03-22] VITALS (23 sets, daily range): BP systolic 134–158; BP diastolic 59–82; PULSE 84–104; RESP 18–22; TEMP 36.2–36.8; O2SAT 93–100
[2023-03-22] MEDS: IPRATROPIUM BR 0.02% INH SOLN 0.5 MG/2.5 ML VIAL INHALATION ×4 (01:45→20:30)
[2023-03-22] MEDS: LEVALBUTEROL NEB 1.25 MG/3 ML 0.63 MG INHALATION ×4 (01:45→20:30)
[2023-03-22 04:33] LABS: Basophils Percent Auto 0.2 % (0.2-1.2); Eosinophils Absolute Auto 0.1 K/mm3 (0-0.3); Eosinophils Percent Auto 0.7 % (0-4.4); Hematocrit 33.3 % (37.0-47.0); Hemoglobin 11.1 g/dL (12.0-15.0); Immature Granulocyte Absolute 0.25 K/mm3 (0.00-0.031); Immature Granulocyte Percent A 2.2 % (0-0.5); Lymphocytes Absolute Auto 1.03 K/mm3 (0.9-3.2); Lymphocytes Percent Auto 8.9 % (18.3-44.2); Mean Corpuscular HGB Conc 33.3 g/dl (32-36); Mean Corpuscular Volume 99.1 fl (80-100); Mean Platelet Volume 9.9 fl (7.4-10.4); Monocytes Absolute Auto 0.9 K/mm3 (0.1-0.6); Monocytes Percent Auto 7.5 % (2.6-8.5); Neutrophils Absolute Auto 9.3 K/mm3 (1.3-6.7); Neutrophils Percent Auto 80.5 % (45.5-73.1); Platelet Count Result 335 k/mm3 (150-375); Red Blood Count 3.36 M/mm3 (4.2-5.4); Red Cell Distribution Width 13.3 % (11.5-14.5); White Blood Count 11.6 K/mm3 (4.5-10.0)
[2023-03-22 04:49] LABS: Anion Gap 4 mmol/L (8-16); Blood Urea Nitrogen 15 mg/dL (7-17); Carbon Dioxide 29 mmol/L (22-30); Chloride 103 mmol/L (98-107); Estimated CRCL calculation 71 ml/min; Estimated Glomerular Filt Rate > 60; Glucose 310 mg/dL (65-110); Magnesium 1.7 mg/dL (1.6-2.3); Potassium 3.5 mmol/L (3.4-5.0); Sodium 136 mmol/L (137-145)
[2023-03-22] MEDS: ACYCLOVIR 400 MG TABLET PO ×3 (09:15→18:04)
[2023-03-22] MEDS: predniSONE 20 MG TABLET 40 MG PO (09:15)
[2023-03-22] MEDS: GABAPENTIN 300 MG CAPSULE PO ×2 (09:16→18:05)
[2023-03-22] MEDS: NYSTATIN 100,000 UNITS/ML SUSP 5 ML ORAL.SUSP PO ×4 (09:16→21:09)
[2023-03-22] MEDS: SERTRALINE HCL 50 MG TABLET 100 MG PO (09:16)
[2023-03-22] MEDS: ALPRAZolam (*CRX) 0.5 MG TABLET PO ×3 (09:16→18:05)
[2023-03-22] MEDS: NICOTINE (*PBKC) 21 MG PATCH 1 PATCH TRANSDERM (09:16)
[2023-03-22] MEDS: CEFDINIR 300 MG CAPSULE PO ×2 (09:16→21:08)
[2023-03-22] MEDS: ENOXAPARIN 40 MG/0.4 ML SYRINGE SUB-Q (09:17)
[2023-03-22] MEDS: PANTOPRAZOLE SODIUM IV 40 MG VIAL IV PUSH (09:17)
[2023-03-22] MEDS: ACYCLOVIR 5% OINTMENT 15 GM TUBE 1 APPLIC TOPICAL ×5 (09:17→21:15)
[2023-03-22] MEDS: BUDESONIDE RESPULE NEB 0.5 MG/2 ML AMP INHALATION ×2 (10:17→20:30)
--- NOTE | 2023-03-22 13:12 | PM.IMPN ---
Progress Note: A&P Assessment and Plan (1) Septic shock: Code(s): A41.9 - Sepsis, unspecified organism; R65.21 - Severe sepsis with septic shock Status: Acute (2) Acute kidney injury: Code(s): N17.9 - Acute kidney failure, unspecified Status: Acute (3) COPD exacerbation: Code(s): J44.1 - Chronic obstructive pulmonary disease with (acute) exacerbation Status: Acute (4) Hypertension: Code(s): I10 - Essential (primary) hypertension Status: Acute Plan 62F w/ PMH anxiety, COPD, alcohol abuse, tobacco abuse, HSV, HTN presented with sepsis and acute COPD exacerbation. Diagnoses: NAVNEET acute copd exacerbation tobacco and alcohol abuse hyponatremia CAP sepsis Pt improved. Will plan for discharge tomorrow w/o abx. She will need controller medications prescribed for her COPD. She reports severe weakness still. I advised her she has to participate with therapy well since she is refusing home health care. She has oral herpes labialis which are encrusted. She is on antiviral. For her complaint of oral pain when eating will provide a prn lidocaine swish and swallow. FEN: regulard diet GI prophylaxis: protonix DVT prophylaxis: lovenox Lines:pIV Code Status: Full code Dispo: D/C tomorrow. she declines home health or PT at home. Subjective Date/time seen: 03/22/23 13:12 Interval history: pt seen at bedside, resting comfortably. she has no complaints aside from being severely weak still, and believes she is unable to get around Review of Systems Cardiovascular: Cardiovascular: Denies chest pain and Denies dyspnea Respiratory: Respiratory: Denies cough and Denies dyspnea Gastrointestinal: Gastrointestinal: Denies abdominal pain and Denies vomiting Exam Const: General: no acute distress, alert and Physically active Resp: Effort & Inspection: normal respiratory effort Auscultation: clear to auscultation bilaterally Cardio: Rate: regular rate Rhythm: regular rhythm Heart sounds: S1 normal heart sound present and S2 normal heart sound present GI: Inspection: non-distended GI Palp: No abdominal tenderness Auscultation: normal bowel sounds Extrem: Right upper extremity: no edema Objective Data Vital Signs Vital Signs: Vital Signs - 24 hr 03/21/23 14:00 03/21/23 14:30 03/21/23 14:35 Temperature Pulse Rate 100 100 114 H Respiratory Rate 18 Blood Pressure Pulse Oximetry 94 86 L Oxygen Delivery Room Air Room Air Oxygen Flow Rate Fraction of Inspired Oxygen 03/21/23 14:36 03/21/23 14:37 03/21/23 14:45 Temperature Pulse Rate Respiratory Rate Blood Pressure Pulse Oximetry 87 L 90 Oxygen Delivery Nasal Cannula Nasal Cannula Room Air Oxygen Flow Rate 1 2 Fraction of Inspired Oxygen 03/21/23 16:10 03/21/23 14:00 03/21/23 16:00 Temperature 97.5 F L Pulse Rate 108 H 110 H 105 H Respiratory Rate 20 Blood Pressure 122/67 Pulse Oximetry 96 Oxygen Delivery Oxygen Flow Rate Fraction of Inspired Oxygen 03/21/23 18:00 03/21/23 16:00 03/21/23 20:12 Temperature Pulse Rate 105 H 97 Respiratory Rate 18 Blood Pressure Pulse Oximetry Oxygen Delivery Room Air Oxygen Flow Rate Fraction of Inspired Oxygen 03/21/23 20:14 03/21/23 20:00 03/21/23 20:25 Temperature 97.6 F Pulse Rate 93 109 H 106 H Respiratory Rate 20 16 18 Blood Pressure 144/80 H Pulse Oximetry 96 93 Oxygen Delivery Nasal Cannula Oxygen Flow Rate 1 Fraction of Inspired Oxygen 24 03/21/23 20:00 03/21/23 20:00 03/21/23 22:00 Temperature Pulse Rate 101 H 97 Respiratory Rate Blood Pressure Pulse Oximetry 93 Oxygen Delivery Nasal Cannula Oxygen Flow Rate 2 Fraction of Inspired Oxygen 03/21/23 23:06 03/22/23 01:46 03/22/23 01:52 Temperature 97.6 F Pulse Rate 96 96 100 Respiratory Rate 18 18 18 Blood Pressure 132/67 Pulse Oximetry 98 Oxygen Delivery Oxygen Flow Rate
[2023-03-22] MEDS: LIDOCAINE HCL 2% VISC SOLN 15 ML UDC PO (18:10)
[2023-03-23] VITALS (12 sets, daily range): BP systolic 143–147; BP diastolic 72–77; PULSE 79–104; RESP 18–20; TEMP 36.2–36.9; O2SAT 94–99
[2023-03-23] MEDS: LEVALBUTEROL NEB 1.25 MG/3 ML 0.63 MG INHALATION ×2 (02:40→09:10)
[2023-03-23] MEDS: IPRATROPIUM BR 0.02% INH SOLN 0.5 MG/2.5 ML VIAL INHALATION ×2 (02:40→09:10)
[2023-03-23 05:21] LABS: Hematocrit 33.5 % (37.0-47.0); Hemoglobin 10.9 g/dL (12.0-15.0); Mean Corpuscular HGB Conc 32.5 g/dl (32-36); Mean Corpuscular Hemoglobin 32.7 pg (26-34); Mean Corpuscular Volume 100.6 fl (80-100); Mean Platelet Volume 9.5 fl (7.4-10.4); Platelet Count Result 422 k/mm3 (150-375); Red Blood Count 3.33 M/mm3 (4.2-5.4); Red Cell Distribution Width 13.2 % (11.5-14.5)
[2023-03-23 05:38] LABS: Anion Gap 6 mmol/L (8-16); Blood Urea Nitrogen 13 mg/dL (7-17); Calcium 8.1 mg/dL (8.4-10.2); Carbon Dioxide 30 mmol/L (22-30); Chloride 100 mmol/L (98-107); Estimated CRCL calculation 71 ml/min; Estimated Glomerular Filt Rate > 60; Glucose 315 mg/dL (65-110); Potassium 3.5 mmol/L (3.4-5.0); Sodium 136 mmol/L (137-145)
--- NOTE | 2023-03-23 07:18 | PM.DS ---
DS: Admitting Diagnosis Discharge Date 03/23/23 Admitting Diagnosis sepsis DS: Discharge Diagnosis Discharge Diagnosis (1) Septic shock: Code(s): A41.9 - Sepsis, unspecified organism; R65.21 - Severe sepsis with septic shock Status: Acute (2) Acute hyponatremia: Code(s): E87.1 - Hypo-osmolality and hyponatremia Status: Acute (3) Acute kidney injury: Code(s): N17.9 - Acute kidney failure, unspecified Status: Acute (4) Daily consumption of alcohol: Code(s): Z78.9 - Other specified health status Status: Acute (5) COPD exacerbation: Code(s): J44.1 - Chronic obstructive pulmonary disease with (acute) exacerbation Status: Acute (6) Tobacco abuse: Code(s): Z72.0 - Tobacco use Status: Acute (7) Chronic obstructive pulmonary disease: Code(s): J44.9 - Chronic obstructive pulmonary disease, unspecified Status: Acute DS: Summary Hospital Course Hospital Course: 62F w/ PMH anxiety, COPD, alcohol abuse, tobacco abuse, HSV, HTN presented with septic shock, likely 2/2 community acquired pneumonia. Complicated by acute copd exacerbation, NAVNEET, and hyponatremia. She was treated with nebulizers, steroids, fluid resuscitation and antibiotics. She was counseled on alcohol and tobacco abuse and compliance with suggested inhaler and other treatment recommendations. She made a full recovery to her baseline. To be discharged on 03/23/23 to home independently in stable condition. Time Spent with Patient Time attestation: Total time spent providing and/or coordinating discharge services: Exam Const: General: cooperative and no acute distress Resp: Effort & Inspection: normal respiratory effort Auscultation: diminished lung sounds Cardio: Rate: regular rate Rhythm: regular rhythm Heart sounds: S1 normal heart sound present and S2 normal heart sound present GI: GI Palp: No abdominal tenderness Auscultation: normal bowel sounds DS: Data Data Completed and Pending Labs on day of discharge: Labs from last 24 hours 03/23/23 04:45 WBC 8.0 RBC 3.33 L Hgb 10.9 L Hct 33.5 L MCV 100.6 H MCH 32.7 MCHC 32.5 RDW 13.2 Plt Count 422 H MPV 9.5 Sodium 136 L Potassium 3.5 Chloride 100 Carbon Dioxide 30 Anion Gap 6 L BUN 13 Creatinine 0.50 L Estim Creat Clear Calc 71 Estimated GFR > 60 Glucose 315 H Calcium 8.1 L Discharge Plan Discharge Attending physician on discharge: Jess Low Consulting providers: Raúl Oleary Discharging Clinician: Jess Low Patient Disposition: Home, Self-Care Activity: no preference Diet: heart healthy Patient Instructions: How to Stop Smoking (GEN), Sepsis (DC), Pneumonia (DC) Stand Alone Forms: General Discharge Information, Work/School Release IP Follow-up/Referrals: Xu,Destin Fraire MD [Primary Care Provider] - Discharge Medications: New prednisone 20 mg Tablet See Taper PO DAILY@0800 12 Days Qty: 12 0RF Taper: Prednisone Taper from 60 mg;12 days 40 mg DAILY for 3 Days and 0 Hour 30 mg DAILY for 3 Days and 0 Hour 20 mg DAILY for 3 Days and 0 Hour 10 mg DAILY for 3 Days and 0 Hour budesonide-formoterol [Symbicort] 160-4.5 mcg/actuation HFA aerosol inhaler 2 puff inhalation Q12H Qty: 10.2 5RF tiotropium bromide 2.5 mcg/actuation mist 2 puff inhalation DAILY Qty: 4 5RF Continued sertraline 100 mg tablet 100 mg PO DAILY alprazolam 0.25 mg tablet 0.5 mg PO TID gabapentin 300 mg capsule 300 mg PO BID albuterol sulfate 2.5 mg /3 mL (0.083 %) solution for nebulization 2.5 mg inhalation Q6H Qty: 15 0RF cyclobenzaprine 10 mg tablet 10 mg PO TID PRN (Reason: Muscle Spasm) hydrochlorothiazide 25 mg tablet 25 mg PO DAILY trazodone 50 mg PO HS FML Forte 0.25 % drops,suspension 1 drp ophthalmic (eye) QID Discontinued potassium chloride 20
[2023-03-23] MEDS: ALPRAZolam (*CRX) 0.5 MG TABLET PO ×2 (08:51→13:43)
[2023-03-23] MEDS: ENOXAPARIN 40 MG/0.4 ML SYRINGE SUB-Q (08:51)
[2023-03-23] MEDS: CEFDINIR 300 MG CAPSULE PO (08:51)
[2023-03-23] MEDS: ACYCLOVIR 400 MG TABLET PO ×2 (08:51→13:43)
[2023-03-23] MEDS: SERTRALINE HCL 50 MG TABLET 100 MG PO (08:51)
[2023-03-23] MEDS: NYSTATIN 100,000 UNITS/ML SUSP 5 ML ORAL.SUSP PO ×2 (08:51→13:43)
[2023-03-23] MEDS: predniSONE 20 MG TABLET 40 MG PO (08:51)
[2023-03-23] MEDS: PANTOPRAZOLE SODIUM IV 40 MG VIAL IV PUSH (08:52)
[2023-03-23] MEDS: NICOTINE (*PBKC) 21 MG PATCH 1 PATCH TRANSDERM (08:52)
[2023-03-23] MEDS: GABAPENTIN 300 MG CAPSULE PO (08:52)
[2023-03-23] MEDS: ACYCLOVIR 5% OINTMENT 15 GM TUBE 1 APPLIC TOPICAL ×2 (08:54→13:43)
[2023-03-23] MEDS: BUDESONIDE RESPULE NEB 0.5 MG/2 ML AMP INHALATION (09:10)
== END 2023-03-23 14:40 | disposition home or self-care (01) | DRG 720 ==
LOC: ANHED 10:01 → ANHICU 12:31 → ANHIMU 03-17 21:18
PROVIDERS: Internal Medicine; Admitting Provider Student in an Organized Health Care Education/Training Program; Emergency Provider Preventive Medicine Aerospace Medicine; PCP Internal Medicine Pulmonary Disease; Visit Provider General Practice
DX: A41.9 Sepsis, unspecified organism (principal); R65.21 Severe sepsis with septic shock; N17.9 Acute kidney failure, unspecified; E87.1 Hypo-osmolality and hyponatremia; J18.9 Pneumonia, unspecified organism; J44.0 Chronic obstructive pulmonary disease with (acute) lower respiratory infection; J44.1 Chronic obstructive pulmonary disease with (acute) exacerbation; Z20.822 Contact with and (suspected) exposure to COVID-19; F41.9 Anxiety disorder, unspecified; G62.9 Polyneuropathy, unspecified; F17.210 Nicotine dependence, cigarettes, uncomplicated; E87.6 Hypokalemia; F10.10 Alcohol abuse, uncomplicated
CPT/HCPCS: 36415; 36556; 36600; 71045; 71250; 74176; 76705; 76775; 80048; 80053; 80074; 80202; 82375; 82436; 82550; 82570; 82805; 82948; 83050; 83605; 83735; 84100; 84133; 84300; 85025; 85027; 85610; 85730; 85999; 86738; 87040; 87070; 87081; 87205; 87449; 87635; 87899; 93005; 93306; 94002; 94003; 94618; 94640; 96361; 96365; 96367; 96375; 97110; 97161; 97165; 97530; 97535; 99285; A9270; C1751; C8929; C9113; G0378; G0379; J0456; J0612; J0696; J1170; J1650; J2270; J2920; J3370; J3475; J3480; J7030; J7050; J7120; J7512; Q9957

== ENCOUNTER 2023-04-20 14:12 | Outpatient (CLI) | payer OTHER, SELFPAY ==
--- NOTE | ~2023-04-20 | CT_ITS ---
EXAMINATION: CT diagnostic chest wo con DATE: 04/20/2023 14:34 INDICATION: Cough TECHNIQUE: Computed tomography (CT) of the chest was performed without intravenous contrast. The dose -length product was 66.55 mGy-cm. Automated exposure control and iterative reconstruction technique were employed. COMPARISON: CT dated 03/15/2023 FINDINGS: There is mediastinal lymphadenopathy. There is atherosclerosis of the aorta, great vessels. Trace pericardial effusion. Heart size normal. No significant pleural effusion. There is a 2.8 cm ri ght upper lobe mass, consistent with bronchogenic carcinoma. Recommend percutaneous biopsy or PET/CT scan. No endobronchial lesions. There is right upper lobe atelectasis/scarring. No pneumothorax. IMPRESSION: 1. Right upper lobe mass measuring 2.8 cm, consistent with bronchogenic carcinoma until proven otherw ise. Recommend percutaneous biopsy or pet/CT scan. Mild mediastinal lymphadenopathy, suspicious for m etastatic disease. Reviewed, dictated and finalized at location A. IMPRESSION: 1. Right upper lobe mass measuring 2.8 cm, consistent with bronchogenic carcino ma until proven otherwise. Recommend percutaneous biopsy or pet/CT scan. Mild m ediastinal lymphadenopathy, suspicious for metastatic disease.
== END 2023-04-20 14:13 | disposition home or self-care (01) ==
PROVIDERS: PCP Internal Medicine Pulmonary Disease; Visit Provider Internal Medicine Pulmonary Disease
DX: E87.6 Hypokalemia (principal)
CPT/HCPCS: 71250